=== PATIENT | female | born 1945 | race Caucasian/White ===

== ENCOUNTER 2018-08-09 15:10 | Emergency (ER) | payer MEDICARE, OTHER ==
--- NOTE | 2018-08-09 15:13 | EDM.PDOC ---
ED HPI GENERAL MEDICAL PROBLEM - General Stated Complaint: LT HAND IS SWOLLEN AND HURTS Time Seen by Provider: 08/09/18 15:11 Source of Information: Reports: Patient History Limitations: Reports: No Limitations - History of Present Illness INITIAL COMMENTS - FREE TEXT/NARRATIVE: History of present illness: []Patient is on steroids for chronic arthritis and has some skin breakdown on her left forearm. She fell in the bathtub a month ago and has had pain in both arms since. Last night she started having redness and swelling to the dorsal part of her hand and forearm. She denies any fevers, chills, numbness, tingling or difficulty with movement. Review of systems: As per history of present illness and below otherwise all systems reviewed and negative. Past medical history: As per history of present illness and as reviewed below otherwise noncontributory. Surgical history: As per history of present illness and as reviewed below otherwise noncontributory. Social history: No reported history of drug or alcohol abuse. Family history: As per history of present illness and as reviewed below otherwise noncontributory. Physical exam: General: Well developed, well nourished in NAD HEENT: Atraumatic, normocephalic, pupils reactive, negative for conjunctival pallor or scleral icterus, mucous membranes moist, throat clear, neck supple, nontender, trachea midline. Lungs: Clear to auscultation, breath sounds equal bilaterally, chest nontender. Heart: S1S2, regular, negative for clicks, rubs, or JVD. Abdomen: NABS, Soft, nondistended, nontender. Negative for masses or hepatosplenomegaly. Negative for costovertebral tenderness. Pelvis: Stable nontender. Genitourinary: Deferred. Rectal: Deferred. Extremities: Mild Pale erythema of dorsal left hand extending to the mid left forearm, negative for cords or calf pain. Neurovascular unremarkable. Neuro: Awake, alert, oriented. Cranial nerves II through XII unremarkable. Cerebellum unremarkable. Motor and sensory unremarkable throughout. Exam nonfocal. Skin:warm and dry Diagnostics: None Therapeutics: None ED Course: Unremarkable Impression: Cellulitis left upper extremity Prescriptions: Keflex Plan: Take meds directed, follow up with primary care return if symptoms worsen or change. Definitive disposition and diagnosis as appropriate pending reevaluation and review of above. left wrist Pain Score (Numeric/FACES): 5 - Related Data Allergies Allergy/AdvReac Type Severity Reaction Status Date / Time Iodinated Contrast- Oral and Allergy Other Verified 08/09/18 15:32 IV Dye iodine Allergy Other Verified 08/09/18 15:32 Home Meds: Home Meds Allopurinol [Zyloprim] 1 tab PO DAILY 08/09/18 [History] Prednisolone, Micronized [Prednisolone] 1 dose PO DAILY 08/09/18 [History] amLODIPine [Norvasc] 1 tab PO DAILY 08/09/18 [History] cephALEXin [Keflex] 500 mg PO Q8H #21 cap 08/09/18 [Rx] Review of Systems - Review of Systems Review Of Systems: ROS reveals no pertinent complaints other than HPI. ED EXAM, GENERAL - Physical Exam Exam: See Below (See history of present illness) Course - Vital Signs Last Recorded V/S: Last Vital Signs Temp 97.3 F 08/09/18 15:34 Pulse 79 08/09/18 15:34 Resp 18 08/09/18 15:34 BP 135/72 08/09/18 15:34 Pulse Ox 94 L 08/09/18 15:34 Departure - Departure Time of Disposition: 15:50 Disposition: Home, Self-Care 01 Condition: Good Clinical Impression: Cellulitis Qualifiers: Site of cellulitis: extremity Site of cellulitis of extremity: upper extremity Laterality: left Qualified Code(s): L03.114 - Cellulitis of left upper limb - Discharge Information *PRESCRIPTION DRUG MONITORING PROGRAM REVIEWED*: No *COPY OF PRESCRIPTION DRUG MONITORING REPORT IN PATIENT UNIQUE: No Prescriptions: cephALEXin [Keflex] 500 mg PO Q8H #21 cap Additional Instructions: The following information is given to patients seen in the emergency department who are being discharged to home. This information is to outline your options for follow-up care. We provide all patients seen in our emergency department with a follow-up referral. The need for follow-up, as well as the timing and circumstances, are variable depending upon the specifics of your emergency department visit. If you don't have a primary care physician on staff, we will provide you with a referral. We always advise you to contact your personal physician following an emergency department visit to inform them of the circumstance of the visit and for follow-up with them and/or the need for any referrals to a consulting specialist. The emergency department will also refer you to a specialist when appropriate. This referral assures that you have the opportunity for follow-up care with a specialist. All of these measure are taken in an effort to provide you with optimal care, which includes your follow-up. Under all circumstances we always encourage you to contact your private physician who remains a resource for coordinating your care. When calling for follow-up care, please make the office aware that this follow-up is from your recent emergency room visit. If for any reason you are refused follow-up, please contact the [facility] Emergency Department at and asked to speak to the emergency department charge nurse. Meds as directed follow-up with primary care within a week. Return to ER if symptoms worsen or change. [facility] [address] [place] [id number]
== END 2018-08-09 16:02 | disposition home or self-care (01) ==
LOC: MW.ED 15:10
DX: L03.114 Cellulitis of left upper limb (principal); Z91.041 Radiographic dye allergy status; Z91.09 Other allergy status, other than to drugs and biological substances; Z79.899 Other long term (current) drug therapy
CPT/HCPCS: 99283

== ENCOUNTER 2018-08-30 08:26 | Day surgery (SDC) | payer MEDICARE, OTHER ==
[~2018-08-30 08:26] MED LIST: Bupivacaine 0.25%/EPINEPHrine 1:200,000 10 ML SDV INJECT ONE; Bupivacaine 0.25%/EPINEPHrine 1:200,000 10 ML SDV ONE; Lactated Ringers 1,000 ML IV SCH; Lidocaine 2% 5 ML SDV ONE; Midazolam 1 MG/ML 2 ML SDV ONE; Propofol 200 MG/20 ML SDV ONE; fentaNYL 100 MCG/2 ML SDV ONE
--- NOTE | 2018-08-30 09:05 | PCM.PREANE ---
Preanesthetic Assessment - Anesthesia/Transfusion/Family Hx Anesthesia History: Prior Anesthesia Reaction (previous surgeries include cataract, nose reconstruction, corneal transplants, liver cyst excision, colon resection, tubal ligation, RIGHT mastectomy with axillary node dissection. Patient states that MORPHINE post operatively makes her nauseated. No other anethesia reactions, just nausea. Patient states she was told that "the hose that goes into my lungs makes me nauseated" (intubation)....) Family History of Anesthesia Reaction: No Transfusion History: No Prior Transfusion(s) - Review of Systems General: No Symptoms (hypertension, gout, a little hard of hearing, quit smoking 2002, obese, civerticulosis, Hiatal Hernia with mild GERD, kidney stones , low back pain which prevents her from laying flat, psoriasis, concussion as a little child in grade school (no sequelae), bipolar, , arthritis for which she takes daily prednisone) Pulmonary: No Symptoms Cardiovascular: No Symptoms (hypertension) Gastrointestinal: No Symptoms (see above) Neurological: No Symptoms (bipolar history) Other: Reports: None (see above) - Physical Assessment NPO Status Date: 08/30/18 NPO Status Time: 00:00 Pulse: 74 O2 Sat by Pulse Oximetry: 95 Respiratory Rate: 16 Blood Pressure: 146/79 Temperature: 36.2 C Height: 1.63 m Weight: 90.718 kg ASA Class: 3 Mental Status: Alert & Oriented x3 Airway Class: Mallampati = 2 Dentition: Reports: Normal Dentition Thyro-Mental Finger Breadths: 2 Mouth Opening Finger Breadths: 2 ROM/Head Extension: Full Lungs: Clear to Auscultation, Normal Respiratory Effort Cardiovascular: Regular Rate, Regular Rhythm, No Murmurs - Allergies Allergies/Adverse Reactions: Allergies Allergy/AdvReac Type Severity Reaction Status Date / Time amoxicillin [From Augmentin] Allergy Nausea and Verified 08/28/18 09:28 Vomiting clavulanic acid Allergy Nausea and Verified 08/28/18 09:28 [From Augmentin] Vomiting clindamycin Allergy Nausea and Verified 08/28/18 09:28 Vomiting codeine Allergy Nausea and Verified 08/28/18 09:28 Vomiting Iodinated Contrast- Oral and Allergy Hives Verified 08/28/18 09:28 IV Dye iodine Allergy Hives Verified 08/28/18 09:28 levofloxacin Allergy Nausea and Verified 08/28/18 09:28 Vomiting morphine Allergy Nausea and Verified 08/28/18 09:28 Vomiting olmesartan Allergy Nausea and Verified 08/28/18 09:28 Vomiting oxycodone Allergy Nausea and Verified 08/28/18 09:28 Vomiting Sulfa (Sulfonamide Allergy Nausea and Verified 08/28/18 09:28 Antibiotics) Vomiting telmisartan Allergy Nausea and Verified 08/28/18 09:28 Vomiting theophylline [From Theolair] Allergy Cannot Verified 08/28/18 09:28 Remember - Blood Blood Available: No Product(s) Available: None - Acknowledgements Anesthesia Type Planned: MAC (Plan A: MAC. 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: Musculoskeletal History: Reports: Back Pain, Chronic, Gout, Neck Pain, Chronic, RA Neurological History: Reports: Concussion Psychiatric History: Reports: Anxiety, Depression Endocrine/Metabolic History: Reports: Obesity/BMI 30+ Hematologic History: Reports: None Immunologic History: Reports: Immunosuppression Oncologic (Cancer) History: Reports: Breast Dermatologic History: Reports: Psoriasis - Infectious Disease History Infectious Disease History: Reports: Measles - Past Surgical History Head Surgeries/Procedures: Reports: None HEENT Surgical History: Reports: Cataract Surgery, Naso-Sinus Surgery Other HEENT Surgeries/Procedures: hx of bilateral corneal transplants Cardiovascular Surgical History: Reports: None Respiratory Surgical History: Reports: None GI Surgical History: Reports: Colon, Colonoscopy, Other (See Below) Other GI Surgeries/Procedures: hx of Colon Resection for diverticulosis, hx of "cyst" removed from liver Female Surgical History: Reports: Mastectomy, Tubal Ligation Endocrine Surgical History: Reports: None Neurological Surgical History: Reports: None Musculoskeletal Surgical History: Reports: Arthroscopic Knee Oncologic Surgical History: Reports: Mastectomy Dermatological Surgical History: Reports: None - SUBSTANCE USE Smoking Status *Q: Former Smoker Tobacco Use Within Last Twelve Months: No Recreational Drug Use History: No - HOME MEDS Home Medications: Home Meds Allopurinol [Zyloprim] 100 mg PO QPM 08/09/18 [History] Prednisolone, Micronized [Prednisolone] 5 mg PO QPM 08/09/18 [History] amLODIPine [Norvasc] 10 mg PO QPM 08/09/18 [History] Citalopram [Citalopram HBr] 20 mg PO QPM 08/28/18 [History] Diclofenac Sodium [Voltaren] 50 mg PO QPM 08/28/18 [History] Fluticasone Propionate [Flonase Allergy Relief] 1 spray NASBOTH DAILY PRN [History] Gabapentin [Neurontin] 100 mg PO QPM 08/28/18 [History] - CURRENT (IN HOUSE) MEDS Current Meds: Current Medications Lactated Ringer's (Ringers, Lactated) 1,000 mls @ 125 mls/hr IV ASDIRECTED [facility] Last Admin: 08/30/18 08:57 Dose: 125 mls/hr Discontinued Medications Bupivacaine HCl/Epinephrine Bitart (Marcaine 0.25%/Epinephrine 1:200,000) 10 ml INJECT ONETIME ONE Stop: 08/30/18 08:01 Bupivacaine HCl/Epinephrine Bitart (Marcaine 0.25%/Epinephrine 1:200,000) Confirm Administered Dose 10 ml .ROUTE .STK-MED ONE Stop: 08/30/18 07:22 Fentanyl (Sublimaze) Confirm Administered Dose 100 mcg .ROUTE .STK-MED ONE Stop: 08/30/18 07:44 Lidocaine (Xylocaine-Mpf 2%) Confirm Administered Dose 5 ml .ROUTE .STK-MED ONE Stop: 08/30/18 07:44 Midazolam HCl (Versed 1 Mg/Ml) Confirm Administered Dose 2 mg .ROUTE .STK-MED ONE Stop: 08/30/18 07:44 Propofol (Diprivan 20 Ml) Confirm Administered Dose 200 mg .ROUTE .STK-MED ONE Stop: 08/30/18 07:44
[2018-08-30] MEDS ORDERED: Ondansetron 4 MG/2 ML SDV ONE (14:33)
[2018-08-30] MEDS ORDERED: Acetaminophen 1,000 MG in Premix Bag 1 BAG IV PRN (15:20)
--- NOTE | 2018-08-30 16:37 | PCM48HPAN ---
Post Anesthesia Note - EVALUATION WITHIN 48HRS OF ANESTHETIC Vital Signs in Normal Range: Yes Patient Participated in Evaluation: Yes Respiratory Function Stable: Yes Airway Patent: Yes Cardiovascular Function Stable: Yes Hydration Status Stable: Yes Pain Control Satisfactory: Yes Nausea and Vomiting Control Satisfactory: Yes Pulse Rate: 74 Resp Rate: 16 Temperature: 36.2 C Blood Pressure: 146/79
--- NOTE | 2018-08-30 18:10 | PCM.OPNOTE ---
- General Post-Op/Procedure Note Date of Surgery/Procedure: 08/30/18 Operative Procedure(s): excision of right dorsal hand squamous cell with frozen sections and skin graft closure 6x3cm Pre Op Diagnosis: squamous cell right hand Post-Op Diagnosis: Same Anesthesia Technique: General LMA, Local Primary Surgeon: Yessenia [employer] Supervisor: Buffy Rasmussen Complications: None Condition: Good
--- NOTE | 2018-09-01 12:46 | OR ---
SURGEON: OSAMN BOB MD DATE OF PROCEDURE: 08/30/2018 PREOPERATIVE DIAGNOSIS: Right hand dorsal squamous cell carcinoma. POSTOPERATIVE DIAGNOSIS: Right hand dorsal squamous cell carcinoma. PROCEDURES: Excision of right hand dorsal squamous cell carcinoma with frozen sections and skin graft closure of 6 x 3 cm each. SCENERY BUILDER: CHIQUITA Kiran ANESTHESIA: General LMA with local. REASON FOR AND ROLE OF SCENERY BUILDER: Retraction, prepping, draping, positioning and closure assistance. INDICATIONS: Ms. Nelson is a 73-year-old female with a large right dorsal hand squamous cell carcinoma with significant scarring tethering around this. Risks and benefits of excision were discussed with her and she was in agreement to proceed. Risks were including, but not limited to, bleeding, infection, damage to underlying or overlying structures, possible need for future interventions, and possible scarring. PROCEDURE IN DETAIL: After informed consent was obtained and placed on the chart, the patient was brought to operating theater and laid in supine position. After adequate LMA anesthesia was obtained, the area was prepped and draped, and a time-out was completed to confirm side and site. 0.25% Marcaine with epinephrine was injected into the area for block. Once adequately anesthetized, the area was excised in elliptical fashion for a total size of 6 x 3 cm. This was marked at the 12 o'clock position and sent for pathology. Margins were confirmed as negative for this acanthomatous squamous cell. Once adequately excised, meticulous hemostasis was obtained and a skin graft was borrowed from the right volar forearm in an elliptical fashion for a 6x 3 cm. This was then sutured in place using a 5-0 chromic stitch and once adequately secured, it was dressed with Xeroform fluffs and a Kerlix gauze dressing. The donor site was closed with 4-0 Monocryl in a running subcuticular fashion and Steri-Strips. She tolerated this well. All counts and needles were correct at the end of the case. FOLLOWUP INSTRUCTIONS: The patient will see us in 5 days, sooner if any problems, questions, or concerns. HEGGTTIP / TREY /[id number]
== END 2018-08-30 16:36 | disposition home or self-care (01) ==
LOC: MW.SDS 08:26
PROVIDERS: ATTEND Plastic Surgery
DX: C76.41 Malignant neoplasm of right upper limb (principal); I10 Essential (primary) hypertension; E66.9 Obesity, unspecified; Z68.34 Body mass index [BMI] 34.0-34.9, adult; Z87.891 Personal history of nicotine dependence; Z79.899 Other long term (current) drug therapy; Z88.1 Allergy status to other antibiotic agents; Z88.5 Allergy status to narcotic agent; Z88.8 Allergy status to other drugs, medicaments and biological substances; Z88.2 Allergy status to sulfonamides
CPT/HCPCS: 14041; J2001; J2250; J2405; J2704; J3010; J3490; J7120

== ENCOUNTER 2019-02-10 07:29 | Inpatient (IN) | payer MEDICARE, OTHER ==
[~2019-02-10 07:29] MED LIST changes: +Acetaminophen 1,000 MG in Premix Bag 1 BAG IV SCH; -Bupivacaine 0.25%/EPINEPHrine 1:200,000 10 ML SDV INJECT ONE; -Bupivacaine 0.25%/EPINEPHrine 1:200,000 10 ML SDV ONE; +Famotidine 20 MG/2 ML SDV IVPUSH SCH; -Lactated Ringers 1,000 ML IV SCH; -Lidocaine 2% 5 ML SDV ONE; -Midazolam 1 MG/ML 2 ML SDV ONE; -Propofol 200 MG/20 ML SDV ONE; +Scopolamine 1.5 MG Transdermal Patch TRDERM SCH; -fentaNYL 100 MCG/2 ML SDV ONE; +oxyCODONE 5 MG Tab PO PRN
[2019-02-10] MEDS ORDERED: Tranexamic Acid 2,000 MG in Sodium Chloride 0.9% 100 ML IV ONE (08:00)
[2019-02-10] MEDS ORDERED: ceFAZolin 2 GM in Premix Bag 1 BAG IV SCH (08:00)
[2019-02-10] MEDS ORDERED: Ropivacaine 49.25 ML, Ketorolac 30 MG, EPINEPHrine 0.5 MG, cloNIDine 80 MCG in Sodium C... INJECT SCH (08:00)
[2019-02-10] MEDS: Lactated Ringers 1,000 ML IV SCH ×2 (08:52→15:45)
[2019-02-10] MEDS ORDERED: ePHEDrine 50 MG/ML SDV ONE (09:32)
[2019-02-10] MEDS ORDERED: Sodium Chloride 0.9% 40 ML ONE (09:32)
[2019-02-10] MEDS ORDERED: Ondansetron 4 MG/2 ML SDV ONE (09:32)
[2019-02-10] MEDS ORDERED: Midazolam 1 MG/ML 2 ML SDV ONE (09:33)
[2019-02-10] MEDS ORDERED: Propofol 200 MG/20 ML SDV ONE ×2 (09:33→11:54)
--- NOTE | 2019-02-10 09:55 | PCM.PREANE ---
Preanesthetic Assessment - Anesthesia/Transfusion/Family Hx Anesthesia History: Prior Anesthesia Without Reaction Type of Anesthesia Reaction: Other (see below) (use to have a lot of nauzea) Family History of Anesthesia Reaction: No Transfusion History: No Prior Transfusion(s) Intubation History: Unknown - Review of Systems General: No Symptoms Pulmonary: No Symptoms Cardiovascular: No Symptoms Gastrointestinal: No Symptoms Neurological: No Symptoms Other: Reports: None - Physical Assessment NPO Status Date: 02/09/19 NPO Status Time: 23:00 O2 Sat by Pulse Oximetry: 92 Respiratory Rate: 16 Vital Signs: Last Vital Signs Temp 36.4 C 02/10/19 07:30 Pulse 64 02/10/19 07:30 Resp 16 02/10/19 07:30 BP 134/77 02/10/19 07:30 Pulse Ox 92 L 02/10/19 07:30 Height: 5 ft 4 in Weight: 90.718 kg ASA Class: 2 Mental Status: Alert & Oriented x3 Airway Class: Mallampati = 2 Dentition: Reports: Normal Dentition Thyro-Mental Finger Breadths: 3 Mouth Opening Finger Breadths: 3 ROM/Head Extension: Full Lungs: Clear to Auscultation, Normal Respiratory Effort Cardiovascular: Regular Rate, Regular Rhythm - Lab Values: Laboratory Last Values Blood Type O NEGATIVE 02/10/19 08:14 Antibody Screen NEGATIVE 02/10/19 08:14 - Allergies Allergies/Adverse Reactions: Allergies Allergy/AdvReac Type Severity Reaction Status Date / Time amoxicillin [From Augmentin] Allergy Nausea and Verified 02/05/19 10:22 Vomiting clavulanic acid Allergy Nausea and Verified 02/05/19 10:22 [From Augmentin] Vomiting clindamycin Allergy Nausea and Verified 02/05/19 10:22 Vomiting codeine Allergy Nausea and Verified 02/05/19 10:22 Vomiting Iodinated Contrast- Oral and Allergy Hives Verified 02/05/19 10:22 IV Dye iodine Allergy Hives Verified 02/05/19 10:22 levofloxacin Allergy Nausea and Verified 02/05/19 10:22 Vomiting morphine Allergy Nausea and Verified 02/05/19 10:22 Vomiting olmesartan Allergy Nausea and Verified 02/05/19 10:22 Vomiting oxycodone Allergy Nausea and Verified 02/05/19 10:22 Vomiting Sulfa (Sulfonamide Allergy Nausea and Verified 02/05/19 10:22 Antibiotics) Vomiting telmisartan Allergy Nausea and Verified 02/05/19 10:22 Vomiting theophylline [From Theolair] Allergy Cannot Verified 02/05/19 10:22 Remember - Blood Blood Available: No - Anesthesia Plan Pre-Op Medication Ordered: None - Acknowledgements Anesthesia Type Planned: Spinal (general anesthesia back up plan) Pt an Appropriate Candidate for the Planned Anesthesia: Yes Alternatives and Risks of Anesthesia Discussed w Pt/Guardian: Yes Pt/Guardian Understands and Agrees with Anesthesia Plan: Yes PreAnesthesia Questionnaire HEENT History: Reports: Cataract, Other (See Below) Other HEENT History: hx of fx nose, hx of Fuchs Corneal Dystrophy Cardiovascular History: Reports: Hypertension Respiratory History: Reports: None Gastrointestinal History: Reports: Diverticulosis, Hiatal Hernia Genitourinary History: Reports: Renal Calculus Other Genitourinary History: passed stones on her own 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: Musculoskeletal History: Reports: Back Pain, Chronic, Gout, Neck Pain, Chronic, RA Neurological History: Reports: Concussion Psychiatric History: Reports: Anxiety, Depression Endocrine/Metabolic History: Reports: Obesity/BMI 30+ Hematologic History: Reports: None Immunologic History: Reports: Immunosuppression Oncologic (Cancer) History: Reports: Basal Cell Carcinoma, Breast Dermatologic History: Reports: Psoriasis - Infectious Disease History Infectious Disease History: Reports: Measles - Past Surgical History Head Surgeries/Procedures: Reports: None HEENT Surgical History: Reports: Cataract Surgery, Naso-Sinus Surgery, Other ( See Below) Other HEENT Surgeries/Procedures: hx of bilateral corneal transplants Cardiovascular Surgical History: Reports: None Respiratory Surgical History: Reports: None GI Surgical History: Reports: Colon, Colonoscopy, Other (See Below) Other GI Surgeries/Procedures: hx of Colon Resection for diverticulosis, hx of "cyst" removed from liver Female Surgical History: Reports: Mastectomy, Tubal Ligation Endocrine Surgical History: Reports: None Neurological Surgical History: Reports: None Musculoskeletal Surgical History: Reports: Arthroscopic Knee Oncologic Surgical History: Reports: Mastectomy Dermatological Surgical History: Reports: None, Skin Biopsy - SUBSTANCE USE Smoking Status *Q: Former Smoker Tobacco Use Within Last Twelve Months: No Recreational Drug Use History: No - HOME MEDS Home Medications: Home Meds Allopurinol [Zyloprim] 100 mg PO QPM 08/09/18 [History] amLODIPine [Norvasc] 10 mg PO QPM 08/09/18 [History] Citalopram [Citalopram HBr] 20 mg PO QPM 08/28/18 [History] Fluticasone Propionate [Flonase Allergy Relief] 1 spray NASBOTH DAILY PRN [History] Gabapentin [Neurontin] 100 mg PO QPM 08/28/18 [History] Furosemide 20 mg PO DAILY PRN 02/05/19 [History] predniSONE 2.5 mg PO DAILY 02/10/19 [History] prednisoLONE acetate [Pred Forte 1% Ophth Susp] 1 drop EYEBOTH BID 02/10/19 [ History] - CURRENT (IN HOUSE) MEDS Current Meds: Current Medications Famotidine (Pepcid) 40 mg IVPUSH ONARRIVE [facility] Last Admin: 02/10/19 09:09 Dose: 40 mg Acetaminophen 1,000 mg/ Premix 100 mls @ 400 mls/hr IV ONARRIVE [facility] Last Admin: 02/10/19 09:08 Dose: 400 mls/hr Cefazolin Sodium/Dextrose 2 gm (/ Premix) 50 mls @ 100 mls/hr IV ONCALL [facility] Ropivacaine 49.25 ml/Ketorolac Tromethamine 30 mg/Epinephrine HCl 0.5 mg/ Clonidine HCl 80 mcg/ Sodium Chloride 75 mls @ 50 mls/sec INJECT ASDIRECTED [facility] Lactated Ringer's (Ringers, Lactated) 1,000 mls @ 100 mls/hr IV ASDIRECTED [facility] Last Admin: 02/10/19 08:52 Dose: 100 mls/hr Scopolamine (Transderm-Scop) 1.5 mg TRDERM ONARRIVE [facility] Last Admin: 02/10/19 09:09 Dose: 1.5 mg Discontinued Medications Ephedrine Sulfate (Ephedrine Sulfate) Confirm Administered Dose 50 mg .ROUTE .STK-MED ONE Stop: 02/10/19 09:33 Tranexamic Acid 2,000 mg/ (Sodium Chloride) 120 mls @ 600 mls/hr IV ASDIRECTED ONE Stop: 02/10/19 08:11 Sodium Chloride (Normal Saline) Confirm Administered Dose 40 mls @ as directed .ROUTE .STK-MED ONE Stop: 02/10/19 09:33 Midazolam HCl (Versed 1 Mg/Ml) Confirm Administered Dose 2 mg .ROUTE .STK-MED ONE Stop: 02/10/19 09:34 Ondansetron HCl (Zofran) Confirm Administered Dose 4 mg .ROUTE .STK-MED ONE Stop: 02/10/19 09:33 Propofol (Diprivan 20 Ml) Confirm Administered Dose 400 mg .ROUTE .STK-MED ONE Stop: 02/10/19 09:34 Tranexamic Acid (Cyklokapron) Confirm Administered Dose 2,000 mg .ROUTE .STK- MED ONE Stop: 02/10/19 07:48
[2019-02-10] MEDS ORDERED: fentaNYL 100 MCG/2 ML SDV ONE (11:43)
[2019-02-10] MEDS ORDERED: Bisacodyl 10 MG Supp RECTAL PRN (12:48)
[2019-02-10] MEDS ORDERED: Aluminum Hydroxide/Magnesium Hydroxide/Simethicone Susp 30 ML Cup PO PRN (12:48)
[2019-02-10] MEDS ORDERED: HYDROmorphone 1 MG/ML Syringe IVPUSH PRN (12:48)
[2019-02-10] MEDS ORDERED: Docusate Sodium 100 MG Cap PO PRN (12:48)
[2019-02-10] MEDS ORDERED: diphenhydrAMINE 25 MG Cap PO PRN (12:48)
[2019-02-10] MEDS ORDERED: Sodium Chloride 0.9% 2.5 ML Syringe FLUSH PRN (12:51)
[2019-02-10] MEDS ORDERED: Sodium Chloride 0.9% 10 ML Syringe FLUSH PRN (12:51)
[2019-02-10] MEDS ORDERED: Furosemide 20 MG Tab PO PRN (12:52)
[2019-02-10] MEDS ORDERED: Fluticasone Propionate Nasal Spray 16 GM Bottle NASBOTH PRN (12:52)
--- NOTE | 2019-02-10 13:06 | PCM.OPNOTE ---
- General Post-Op/Procedure Note Date of Surgery/Procedure: 02/10/19 Operative Procedure(s): L TKA Post-Op Diagnosis: L knee DJD Anesthesia Technique: Moderate Sedation, Spinal Primary Surgeon: Izzy Donovan Technical Illustrations Map Inker: Joyce Castro Technical Illustrations Map Inker: Suzy Mahoney EBL in mLs: 50 Condition: Good Free Text/Narrative:: tt=53 min #[id number] Intake & Output 02/09/19 02/10/19 02/10/19 22:59 06:59 14:59 Output Total 450 Balance -450
[2019-02-10] MEDS: Ketorolac 30 MG/ML SDV IVPUSH SCH ×2 (13:19→18:32)
[2019-02-10] MEDS ORDERED: fentaNYL 100 MCG/2 ML SDV IVPUSH PRN (13:30)
--- NOTE | 2019-02-10 13:53 | PCM.POSTAN ---
POST ANESTHESIA ASSESSMENT - MENTAL STATUS Mental Status: Alert, Oriented - RESPIRATORY Respiratory Status: Respiratory Rate WNL, Airway Patent, O2 Saturation Stable - CARDIOVASCULAR CV Status: Pulse Rate WNL, Blood Pressure Stable - GASTROINTESTINAL GI Status: No Symptoms - PAIN Pain Score: 5 - POST OP HYDRATION Hydration Status: Adequate & Stable
--- NOTE | 2019-02-10 14:12 | OR ---
SURGEON: Izzy Donovan MD DATE OF PROCEDURE: 02/10/2019 PREOPERATIVE DIAGNOSIS: Degenerative joint disease, left knee, tricompartmental. POSTOPERATIVE DIAGNOSIS: Degenerative joint disease, left knee, tricompartmental. PROCEDURE PERFORMED: Left total knee arthroplasty. PRIMARY SURGEON: Izzy Donovan MD. SPORTS MEDICINE TRAINER: Joyce Castro PA-C, and STEPHANIE Penn. ANESTHESIA: Spinal with sedation. ESTIMATED BLOOD LOSS: 50 mL. TOURNIQUET TIME: 53 minutes. COMPLICATIONS: None. DVT PROPHYLAXIS: PAS boot to the nonoperative leg. IMPLANTS USED: García Persona femoral component, size 7 standard (LPS), tibial component size E, 11 mm all-polyethylene articular surface, and 32 mm all-polyethylene patella. FINDINGS: Intraoperative findings showed severe tricompartmental degenerative changes with eburnation of the bone along the medial tibial plateau as well as the medial femoral condyle. Multiple loose bodies were noted within the knee. She did have a calcified bony piece noted in the posterolateral aspect of the knee. I did attempt at removal, however, it appeared to be quite fixed to the soft tissue and was not loose like the other loose bodies, I felt this maybe a fabella. It did not appear to be loose and I elected to leave it intact as I felt that further dissection may cause more harm than good. No significant synovitis was noted within the knee. She did have a previous medial and lateral incision from prior surgeries. I did incorporate the medial incision with the incision to give her a curved type incision. BRIEF HISTORY: Elizabeth is a 73-year-old female who has had complaint of progressive left knee pain. X-rays did confirm tricompartmental degenerative findings. She has had previous surgery on the knee as well. Due to her lack of response to conservative treatment, I did recommend surgical intervention. The risks and goals of procedure were discussed with the patient and were documented preoperatively. She agreed to proceed. DESCRIPTION OF PROCEDURE: The patient was properly identified and brought to the operating room. The patient was then transferred from the operating room cart and placed on the operating table in a supine position. Anesthesia was administered by the anesthesia staff. After adequate anesthesia was obtained, a well-padded tourniquet was applied to the surgical lower extremity. Iyer catheter was placed. The lower extremity was then prepped in standard fashion using ChloraPrep solution. It was then sterilely draped. A time-out was performed to ensure correct site and procedure. Preoperative antibiotics were given along with one gram tranexamic acid IV. The surgical site had been marked preoperatively. An Esmarch was used to exsanguinate the right lower extremity and the tourniquet was inflated. An incision was made over the anterior aspect of the knee, incorporating the previous medial incision. The subcutaneous tissues were dissected down to the level of the fascia. A medial parapatellar approach to the knee was made. A portion of the infrapatellar fat pad was then excised. The distal femur was then exposed. The step reamer was used to gain access to the intramedullary canal. This was placed in 6 degrees of valgus. Pins were placed. The distal femoral cutting block was placed and the distal femoral cut was made. Instrumentation was then removed. The femur was then sized. Both Whitesides' line and the epicondylar axis were then marked with electrocautery. The 4-in-1 cutting block was placed. This was placed in a slightly externally rotated position, which corresponded well with the previously drawn lines. The cutting guide was then pinned into position. An Franklin wing guide was used to check the depth of resection of our anterior condylar cut and it was felt that no notching would occur. The anterior condylar cut was then made followed by the posterior condylar cut. Both the posterior chamfer and anterior chamfer cuts were then made. The cutting block was then removed along with the excess bony remnants. We then turned our attention to the tibia. The anterior cruciate ligament and posterior cruciate ligament were released and a posterior cruciate ligament retractor was placed to allow the tibia to be pulled anteriorly. The tibial extra-medullary guide was then positioned. We chose to take approximately 2 mm off the lowest side. The proximal tibia cutting guide was then placed and screwed into position. The proximal tibial resection was then made with care being taken to protect the patellar tendon. The bony resection was then removed. The remainder of the medial and lateral meniscus were then excised. Care was taken to protect the popliteus tendon. The tibia was then sized to the appropriate size. The distal femur was then elevated. The posterior capsule was stripped off the distal femur both medially and laterally. The posterior capsule along with the medial and lateral gutters were then injected with a standard mixture consisting of clonidine, epinephrine, Toradol, and ropivacaine, unless any allergies were found preoperatively. The femoral component was then placed onto the distal femur in a slightly lateral position. This fit the femur well. A box cut was then made without difficulty. This was then removed. The tibial trial along with the polyethylene liner was then placed. The knee came easily into full extension and was stable to varus and valgus stressing both in full extension and flexion. Any additional releases were performed at this time. We then returned our attention to the patella. The patella was everted and towel clamps were used to hold the patella in position. It was resected to a 15 millimeter thickness. It was then sized to the appropriate size. It was prepared in the usual fashion after placing the predetermined size clamps. This was placed in a slightly superior and medial position. The clamp was then removed. The patellar trial button was placed. The knee was taken through a range of motion using the no-touch technique. The patella tracked centrally. A drop lelia was then placed to check alignment. All instruments were then removed from the knee. The tibial sizer was then placed on the tibia. The tibia was prepared in the usual fashion using the reamer and broach. This was then removed. All bony surfaces were copiously irrigated with Pulsavac solution. They were then suctioned dry. Cement was prepared on the back table in the usual manner. Antibiotic impregnated cement was used if the patient was diabetic. Once it was prepared, the bone ends were again suctioned dry. The tibia was cemented into place first. This was malleted into position. Excess cement was then cleared. The femur was then placed in a similar manner. We placed the polyethylene trial into place and the knee was brought into full extension. An axial load was placed while keeping the knee in full extension. The patella button was also cemented into position and the clamp was used to hold this in place as the cement was allowed to cure. The wound was copiously irrigated with saline using a Pulsavac database development project manager. Following this, 1 gram of tranexamic acid was applied topically to the wound during the curing process. After we had adequate curing of the cement, the knee was again taken through a range of motion. The size of the polyethylene was then determined. The polyethylene trial was then removed. The tibial tray was suctioned to make sure there was no remaining soft tissue or cement. Excess cement was cleared from around the edges of the prosthesis as well. The tourniquet was then deflated. We were able to observe for any excess bleeding and none was noted. Electrocautery was used to maintain hemostasis. An additional gram of tranexamic acid was given IV. The retractors were again placed and the predetermined polyethylene was then placed. This was locked into position without difficulty. The knee was again taken through a range of motion with no change from the prior exam. The fascial layer was closed with Number One Vicryl. The subcutaneous tissues were closed with 2-0 Vicryl. The skin was closed with melinda. Xeroform gauze was placed over the wound and a bulky dressing was applied. The patient was then awakened from anesthesia and transferred back to the operating room cart. They were brought to the recovery room in stable condition. All needle and sponge counts were correct. NEREYDA / TREY /[id number] BELEN
[2019-02-10 15:42] LABS: CHLORIDE,CL 108 mmol/L (98-107); SODIUM,NA 143 mmol/L (136-145)
--- NOTE | 2019-02-10 15:52 | CR ---
EXAMINATION: Left knee HISTORY: Arthroplasty COMPARISON: 12/19/2018 TECHNIQUE: 2 views FINDINGS/IMPRESSION: Left total knee hardware is demonstrated in good position and alignment. Operative soft tissue changes are noted.
--- NOTE | 2019-02-10 16:23 | PCM.CONS ---
H&P History of Present Illness - General Date of Service: 02/10/19 Admit Problem/Dx: Admission Diagnosis/Problem Admission Diagnosis/Problem Left knee pain Source of Information: Patient, Old Records History Limitations: Reports: No Limitations - History of Present Illness Initial Comments - Free Text/Narative: This 73 year old female with pmh of HTN, polymyalgia rheumatica, chronic pain and fibromyalgia presented today for L TKA with Dr Donovan. Hospitalist service consulted for medical management. She is alert and oriented, having arrived to the Med/Surg unit from the PACU. She reports she is slightly nauseated, was dry heaving with PT and nausea increased with movement. She denies chest pain or SOB. No palpitations. She reports she takes Prednisone 2.5 mg daily for joint pain related to PMR. She reports BP is always controlled unless her pain is out of control. PCP, Dr Schilling Left Knee Pain Score (Numeric/FACES): 6 - Related Data Allergies/Adverse Reactions: Allergies Allergy/AdvReac Type Severity Reaction Status Date / Time amoxicillin [From Augmentin] Allergy Nausea and Verified 02/05/19 10:22 Vomiting clavulanic acid Allergy Nausea and Verified 02/05/19 10:22 [From Augmentin] Vomiting clindamycin Allergy Nausea and Verified 02/05/19 10:22 Vomiting codeine Allergy Nausea and Verified 02/05/19 10:22 Vomiting Iodinated Contrast- Oral and Allergy Hives Verified 02/05/19 10:22 IV Dye iodine Allergy Hives Verified 02/05/19 10:22 levofloxacin Allergy Nausea and Verified 02/05/19 10:22 Vomiting morphine Allergy Nausea and Verified 02/05/19 10:22 Vomiting olmesartan Allergy Nausea and Verified 02/05/19 10:22 Vomiting oxycodone Allergy Nausea and Verified 02/05/19 10:22 Vomiting Sulfa (Sulfonamide Allergy Nausea and Verified 02/05/19 10:22 Antibiotics) Vomiting telmisartan Allergy Nausea and Verified 02/05/19 10:22 Vomiting theophylline [From Theolair] Allergy Cannot Verified 02/05/19 10:22 Remember Home Medications: Home Meds Allopurinol [Zyloprim] 100 mg PO QPM 08/09/18 [History] amLODIPine [Norvasc] 10 mg PO QPM 08/09/18 [History] Citalopram [Citalopram HBr] 20 mg PO QPM 08/28/18 [History] Fluticasone Propionate [Flonase Allergy Relief] 1 spray NASBOTH DAILY PRN [History] Gabapentin [Neurontin] 100 mg PO QPM 08/28/18 [History] Furosemide 20 mg PO DAILY PRN 02/05/19 [History] predniSONE 2.5 mg PO DAILY 02/10/19 [History] prednisoLONE acetate [Pred Forte 1% Ophth Susp] 1 drop EYEBOTH BID 02/10/19 [ History] Past Medical History HEENT History: Reports: Cataract, Other (See Below) Other HEENT History: hx of fx nose, hx of Fuchs Corneal Dystrophy Cardiovascular History: Reports: Hypertension. Denies: Afib, Heart Murmur, [place] Respiratory History: Reports: None. Denies: COPD Gastrointestinal History: Reports: Diverticulosis, Hiatal Hernia Genitourinary History: Reports: Renal Calculus Other Genitourinary History: passed stones on her own CFO History: Reports: Musculoskeletal History: Reports: Back Pain, Chronic, Gout, Neck Pain, Chronic, RA Neurological History: Reports: Concussion Psychiatric History: Reports: Anxiety, Depression Endocrine/Metabolic History: Reports: Obesity/BMI 30+ Hematologic History: Reports: None Immunologic History: Reports: Immunosuppression Oncologic (Cancer) History: Reports: Basal Cell Carcinoma, Breast Dermatologic History: Reports: Psoriasis - Infectious Disease History Infectious Disease History: Reports: Measles - Past Surgical History Head Surgeries/Procedures: Reports: None HEENT Surgical History: Reports: Cataract Surgery, Naso-Sinus Surgery, Other ( See Below) Other HEENT Surgeries/Procedures: hx of bilateral corneal transplants Cardiovascular Surgical History: Reports: None Respiratory Surgical History: Reports: None GI Surgical History: Reports: Colon, Colonoscopy, Other (See Below) Other GI Surgeries/Procedures: hx of Colon Resection for diverticulosis, hx of "cyst" removed from liver Female Surgical History: Reports: Mastectomy, Tubal Ligation Endocrine Surgical History: Reports: None Neurological Surgical History: Reports: None Musculoskeletal Surgical History: Reports: Arthroscopic Knee Oncologic Surgical History: Reports: Mastectomy Dermatological Surgical History: Reports: None, Skin Biopsy Social & Family History - Family History Family Medical History: Noncontributory - Tobacco Use Smoking Status *Q: Former Smoker Tobacco Use Comment: quit 10 years ago - Caffeine Use Caffeine Use: Reports: Coffee - Recreational Drug Use Recreational Drug Use: No Drug Use in Last 12 Months: No H&P Review of Systems - Review of Systems: Review Of Systems: See Below General: Reports: No Symptoms. Denies: Fever, Chills, Malaise, Weakness HEENT: Reports: No Symptoms. Denies: Sinus Congestion Pulmonary: Reports: No Symptoms. Denies: Shortness of Breath Cardiovascular: Reports: No Symptoms. Denies: Chest Pain Gastrointestinal: Reports: Nausea. Denies: Abdominal Pain, Black Stool, Bloody Stool, Flatus, Vomiting Genitourinary: Reports: No Symptoms Musculoskeletal: Reports: No Symptoms Skin: Reports: No Symptoms Psychiatric: Reports: No Symptoms Neurological: Reports: No Symptoms Hematologic/Lymphatic: Reports: No Symptoms Immunologic: Reports: No Symptoms Exam - Exam Exam: See Below - Vital Signs Vital Signs: Last Vital Signs Temp 96.3 F 02/10/19 14:23 Pulse 70 02/10/19 14:46 Resp 16 02/10/19 14:46 BP 120/65 02/10/19 14:46 Pulse Ox 94 L 02/10/19 14:46 Weight: 90.718 kg - Exam Quality Assessment: Supplemental Oxygen, Urinary Catheter, DVT Prophylaxis General: Alert, Oriented, Cooperative Neck: Supple, Trachea Midline Lungs: Clear to Auscultation, Normal Respiratory Effort Cardiovascular: Regular Rate, Regular Rhythm GI/Abdominal Exam: Normal Bowel Sounds, Soft, Non-Tender Extremities: Normal Inspection, Normal Range of Motion, Non-Tender, No Pedal Edema Neuro Extensive - Mental Status: Alert, Oriented x3 Neuro Extensive - Motor, Sensory, Reflexes: CN II-XII Intact, Normal Gait Psychiatric: Alert, Normal Affect - Patient Data Lab Results Last 24 hrs: Laboratory Results - last 24 hr 02/10/19 02/10/19 02/10/19 Range/Units 08:14 15:14 15:14 WBC 8.32 (4.0-11.0) K/uL RBC 4.25 L (4.30-5.90) M/uL Hgb 12.3 (12.0-16.0) g/dL Hct 39.0 (36.0-46.0) % MCV 91.8 (80.0-98.0) fL MCH 28.9 (27.0-32.0) pg MCHC 31.5 (31.0-37.0) g/dL RDW Std Deviation 49.7 (28.0-62.0) fl RDW Coeff of Mauri 15 (11.0-15.0) % Plt Count 219 (150-400) K/uL MPV 9.70 (7.40-12.00) fL Neut % (Auto) 71.2 (48.0-80.0) % Lymph % (Auto) 19.4 (16.0-40.0) % [place] % (Auto) 8.7 (0.0-15.0) % Eos % (Auto) 0.5 (0.0-7.0) % Baso % (Auto) 0.2 (0.0-1.5) % Neut # (Auto) 5.9 H (1.4-5.7) K/uL Lymph # (Auto) 1.6 (0.6-2.4) K/uL [place] # (Auto) 0.7 (0.0-0.8) K/uL Eos # (Auto) 0.0 (0.0-0.7) K/uL Baso # (Auto) 0.0 (0.0-0.1) K/uL Nucleated RBC % 0.0 /100WBC Nucleated RBCs # 0 K/uL Sodium 143 (136-145) mmol/L Potassium 3.3 L (3.5-5.1) mmol/L Chloride 108 H (98-107) mmol/L Carbon Dioxide 27.9 (21.0-32.0) mmol/L BUN 10 (7.0-18.0) mg/dL Creatinine 0.6 (0.6-1.0) mg/dL Est Cr Clr Drug Dosing 71.03 mL/min Estimated GFR (MDRD) > 60.0 ml/min Glucose 115 H (74-106) mg/dL Calcium 8.2 L (8.5-10.1) mg/dL Magnesium 2.0 (1.8-2.4) mg/dL Blood Type O NEGATIVE Antibody Screen NEGATIVE Result Diagrams: 02/10/19 15:14 02/10/19 15:14 Consult PN Assessment/Plan Procedures: Procedures CT ABD & PELV W/CONTRAST (01/03/19) EMERGENCY DEPT VISIT (08/09/18) MRI JNT OF LWR EXTRE W/O DYE (01/02/19) TIS TRNFR F/C/C/M/N/A/G/H/F (08/30/18) X-RAY EXAM KNEE 4 OR MORE (12/19/18) (1) S/P total knee arthroplasty SNOMED Code(s): 1758203576823, 367802157, 1536178870510 Code(s): Z96.659 - PRESENCE OF UNSPECIFIED ARTIFICIAL KNEE JOINT Current Visit: Yes (2) HTN (hypertension) SNOMED Code(s): 41726663 Code(s): I10 - ESSENTIAL (PRIMARY) HYPERTENSION Current Visit: Yes (3) PMR (polymyalgia rheumatica) SNOMED Code(s): 86209650 Code(s): M35.3 - POLYMYALGIA RHEUMATICA Current Visit: Yes (4) Chronic pain SNOMED Code(s): 99638825 Code(s): G89.29 - OTHER CHRONIC PAIN Current Visit: Yes (5) Fibromyalgia SNOMED Code(s): 949301025 Code(s): M79.7 - FIBROMYALGIA Current Visit: Yes (6) Anxiety and depression SNOMED Code(s): 545282505 Code(s): F41.9 - ANXIETY DISORDER, UNSPECIFIED; F32.9 - MAJOR DEPRESSIVE DISORDER, SINGLE EPISODE, UNSPECIFIED Current Visit: Yes Problem List Initiated/Reviewed/Updated: Yes Plan: THis 73 year old female admitted for L TKA with Dr Donovan. Hospitalist service consulted for medical management. 1. S/P L TKA: Orders per Orthopedics 2. HTN: Stable. Continue Amlodipine. 3. PMR: Continue Prednisone. PPI. Gabapentin for chronic pain VTE prophylaxis: Recommended when Orthopedics deems appropriate
[2019-02-10] MEDS: Ondansetron 4 MG/2 ML SDV IVPUSH PRN (17:44)
[2019-02-10] MEDS: Citalopram 20 MG Tab PO SCH (17:50)
[2019-02-10] MEDS: amLODIPine 2.5 MG Tab PO SCH (17:50)
[2019-02-10] MEDS: Gabapentin 100 MG Cap PO SCH (17:50)
[2019-02-10] MEDS: Allopurinol 100 MG Tab PO SCH (17:51)
[2019-02-10] MEDS: prednisoLONE Acetate 1% Ophth Susp 5 ML Bottle EYEBOTH SCH (19:45)
[2019-02-10] MEDS: ceFAZolin 2 GM in Premix Bag 1 BAG IV SCH (19:53)
--- NOTE | 2019-02-11 00:05 | PCM48HPAN ---
Post Anesthesia Note - EVALUATION WITHIN 48HRS OF ANESTHETIC Vital Signs in Normal Range: Yes Patient Participated in Evaluation: Yes Respiratory Function Stable: Yes Airway Patent: Yes Cardiovascular Function Stable: Yes Hydration Status Stable: Yes Pain Control Satisfactory: Yes Nausea and Vomiting Control Satisfactory: Yes Mental Status Recovered: Yes Pulse Rate: 74 SaO2: 92 Resp Rate: 18 Temperature: 97.1 F Blood Pressure: 136/66
[2019-02-11] MEDS: Ketorolac 30 MG/ML SDV IVPUSH SCH (00:45)
[2019-02-11] MEDS: ceFAZolin 2 GM in Premix Bag 1 BAG IV SCH (02:30)
[2019-02-11] MEDS: Ondansetron 4 MG/2 ML SDV IVPUSH PRN (02:30)
--- NOTE | 2019-02-11 09:54 | PCM.CONSN ---
- General Info Date of Service: 02/11/19 Admission Dx/Problem (Free Text): Admission Diagnosis/Problem Admission Diagnosis/Problem Left knee pain Subjective Update: Feeling increased pain in L knee today with some mild nausea. Otherwise no chest pain of SOB. No other concerns currently. Functional Status: Reports: Pain Controlled, Tolerating Diet, Ambulating, Urinating - Review of Systems General: Reports: No Symptoms. Denies: Weakness, Fatigue HEENT: Reports: No Symptoms. Denies: Headaches, Sore Throat Pulmonary: Reports: No Symptoms. Denies: Shortness of Breath Cardiovascular: Reports: No Symptoms. Denies: Chest Pain Gastrointestinal: Reports: Nausea. Denies: Abdominal Pain, Vomiting Musculoskeletal: Reports: Joint Pain (L knee pain) Skin: Reports: No Symptoms Neurological: Reports: No Symptoms Psychiatric: Reports: No Symptoms - Patient Data Vitals - Most Recent: Last Vital Signs Temp 96.6 F 02/11/19 04:15 Pulse 80 02/11/19 04:15 Resp 16 02/11/19 04:15 BP 102/54 L 02/11/19 04:15 Pulse Ox 92 L 02/11/19 04:15 Weight - Most Recent: 90.718 kg I&O - Last 24 Hours: Intake & Output 02/10/19 02/11/19 02/11/19 22:59 06:59 14:59 Intake Total 1050 1891 Output Total 600 1200 Balance 450 691 Lab Results Last 24 Hours: Laboratory Results - last 24 hr 02/10/19 02/10/19 02/11/19 Range/Units 15:14 15:14 05:28 WBC 8.32 (4.0-11.0) K/uL RBC 4.25 L (4.30-5.90) M/uL Hgb 12.3 12.0 (12.0-16.0) g/dL Hct 39.0 38.6 (36.0-46.0) % MCV 91.8 (80.0-98.0) fL MCH 28.9 (27.0-32.0) pg MCHC 31.5 (31.0-37.0) g/dL RDW Std Deviation 49.7 (28.0-62.0) fl RDW Coeff of Mauri 15 (11.0-15.0) % Plt Count 219 (150-400) K/uL MPV 9.70 (7.40-12.00) fL Neut % (Auto) 71.2 (48.0-80.0) % Lymph % (Auto) 19.4 (16.0-40.0) % Evans % (Auto) 8.7 (0.0-15.0) % Eos % (Auto) 0.5 (0.0-7.0) % Baso % (Auto) 0.2 (0.0-1.5) % Neut # (Auto) 5.9 H (1.4-5.7) K/uL Lymph # (Auto) 1.6 (0.6-2.4) K/uL Evans # (Auto) 0.7 (0.0-0.8) K/uL Eos # (Auto) 0.0 (0.0-0.7) K/uL Baso # (Auto) 0.0 (0.0-0.1) K/uL Nucleated RBC % 0.0 /100WBC Nucleated RBCs # 0 K/uL Sodium 143 (136-145) mmol/L Potassium 3.3 L (3.5-5.1) mmol/L Chloride 108 H (98-107) mmol/L Carbon Dioxide 27.9 (21.0-32.0) mmol/L BUN 10 (7.0-18.0) mg/dL Creatinine 0.6 (0.6-1.0) mg/dL Est Cr Clr Drug Dosing 71.03 mL/min Estimated GFR (MDRD) > 60.0 ml/min Glucose 115 H (74-106) mg/dL Calcium 8.2 L (8.5-10.1) mg/dL Magnesium 2.0 (1.8-2.4) mg/dL Med Orders - Current: Current Medications Al Hydroxide/Mg Hydroxide (Mag-Al Plus) 30 ml PO Q4H PRN PRN Reason: Indigestion Allopurinol (Zyloprim) 100 mg PO QPM [facility] Last Admin: 02/10/19 17:51 Dose: 100 mg Amlodipine Besylate (Norvasc) 10 mg PO QPM [facility] Last Admin: 02/10/19 17:50 Dose: 10 mg Aspirin (Ecotrin) 325 mg PO BID [facility] Bisacodyl (Dulcolax) 10 mg RECTAL DAILY PRN PRN Reason: Constipation Celecoxib (Celebrex) 200 mg PO BID [facility] Citalopram Hydrobromide (Celexa) 20 mg PO QPM [facility] Last Admin: 02/10/19 17:50 Dose: 20 mg Diphenhydramine HCl (Benadryl) 25 - 50 mg PO Q6H PRN PRN Reason: Itching Docusate Sodium (Colace) 100 mg PO BID PRN PRN Reason: Constipation Famotidine (Pepcid) 40 mg IVPUSH ONARRIVE [facility] Last Admin: 02/10/19 09:09 Dose: 40 mg Famotidine (Pepcid) 40 mg PO DAILY [facility] Fentanyl (Sublimaze) 50 - 100 mcg IVPUSH Q5M PRN PRN Reason: Pain (severe 7-10) Fluticasone Propionate (Flonase) 0 gm NASBOTH DAILY PRN PRN Reason: Allergies Furosemide (Lasix) 20 mg PO DAILY PRN PRN Reason: swollen legs Gabapentin (Neurontin) 100 mg PO QPM [facility] Last Admin: 02/10/19 17:50 Dose: 100 mg Hydromorphone HCl (Dilaudid) 0.5 - 1 mg IVPUSH Q3H PRN PRN Reason: Pain Last Admin: 02/10/19 14:33 Dose: 1 mg Acetaminophen 1,000 mg/ Premix 100 mls @ 400 mls/hr IV ONARRIVE [facility] Last Admin: 02/10/19 09:08 Dose: 400 mls/hr Cefazolin Sodium/Dextrose 2 gm (/ Premix) 50 mls @ 100 mls/hr IV ONCALL [facility] Last Admin: 02/10/19 18:20 Dose: 100 mls/hr Ropivacaine 49.25 ml/Ketorolac Tromethamine 30 mg/Epinephrine HCl 0.5 mg/ Clonidine HCl 80 mcg/ Sodium Chloride 75 mls @ 50 mls/sec INJECT ASDIRECTED [facility] Lactated Ringer's (Ringers, Lactated) 1,000 mls @ 100 mls/hr IV ASDIRECTED [facility] Last Admin: 02/10/19 15:45 Dose: 100 mls/hr Ondansetron HCl (Zofran) 4 mg IVPUSH Q6H PRN PRN Reason: Nausea/Vomiting Last Admin: 02/11/19 02:30 Dose: 4 mg Oxycodone/Acetaminophen (Percocet 325-5 Mg) 1 - 2 tab PO Q4H PRN PRN Reason: Pain Polyethylene Glycol (Miralax) 17 gm PO DAILY [facility] Prednisolone Acetate (Pred Forte 1% Ophth Susp) 1 ml EYEBOTH BID [facility] Last Admin: 02/10/19 19:45 Dose: Not Given Prednisone (Prednisone) 2.5 mg PO DAILY [facility] Scopolamine (Transderm-Scop) 1.5 mg TRDERM ONARRIVE [facility] Last Admin: 02/10/19 09:09 Dose: 1.5 mg Sodium Chloride (Saline Flush) 10 ml FLUSH ASDIRECTED PRN PRN Reason: Keep Vein Open Sodium Chloride (Saline Flush) 2.5 ml FLUSH ASDIRECTED PRN PRN Reason: Keep Vein Open Discontinued Medications Ephedrine Sulfate (Ephedrine Sulfate) Confirm Administered Dose 50 mg .ROUTE .STK-MED ONE Stop: 02/10/19 09:33 Fentanyl (Sublimaze) Confirm Administered Dose 100 mcg .ROUTE .STK-MED ONE Stop: 02/10/19 11:44 Tranexamic Acid 2,000 mg/ (Sodium Chloride) 120 mls @ 600 mls/hr IV ASDIRECTED ONE Stop: 02/10/19 08:11 Last Admin: 02/10/19 19:45 Dose: Not Given Sodium Chloride (Normal Saline) Confirm Administered Dose 40 mls @ as directed .ROUTE .STK-MED ONE Stop: 02/10/19 09:33 Cefazolin Sodium/Dextrose 2 gm (/ Premix) 50 mls @ 100 mls/hr IV Q8H [facility] Stop: 02/11/19 03:29 Last Admin: 02/11/19 02:30 Dose: 100 mls/hr Ketorolac Tromethamine (Toradol) 15 mg IVPUSH Q6H [facility] Stop: 02/11/19 05:00 Last Admin: 02/11/19 00:45 Dose: 15 mg Midazolam HCl (Versed 1 Mg/Ml) Confirm Administered Dose 2 mg .ROUTE .STK-MED ONE Stop: 02/10/19 09:34 Ondansetron HCl (Zofran) Confirm Administered Dose 4 mg .ROUTE .STK-MED ONE Stop: 02/10/19 09:33 Oxycodone HCl (Oxycodone) 5 - 10 mg PO Q4H PRN PRN Reason: Pain Stop: 02/11/19 06:00 Last Admin: 02/11/19 02:30 Dose: 10 mg Propofol (Diprivan 20 Ml) Confirm Administered Dose 400 mg .ROUTE .STK-MED ONE Stop: 02/10/19 09:34 Propofol (Diprivan 20 Ml) Confirm Administered Dose 200 mg .ROUTE .STK-MED ONE Stop: 02/10/19 11:55 Tranexamic Acid (Cyklokapron) Confirm Administered Dose 2,000 mg .ROUTE .STK- MED ONE Stop: 02/10/19 07:48 - Exam General: Alert, Oriented, Cooperative, No Acute Distress Lungs: Clear to Auscultation, Normal Respiratory Effort Cardiovascular: Regular Rate, Regular Rhythm, No Murmurs GI/Abdominal Exam: Normal Bowel Sounds, Soft, Non-Tender, Other (passing flatus) Extremities: Normal Inspection, Normal Range of Motion, Non-Tender, Pedal Edema (mild edema) Wound/Incisions: Dressing Dry and Intact (to L knee, JEROMY intact with polar ice) Psy/Mental Status: Alert, Normal Affect, Normal Mood Consult PN Assessment/Plan Procedures: Procedures CT ABD & PELV W/CONTRAST (01/03/19) EMERGENCY DEPT VISIT (08/09/18) MRI JNT OF LWR EXTRE W/O DYE (01/02/19) TIS TRNFR F/C/C/M/N/A/G/H/F (08/30/18) X-RAY EXAM KNEE 4 OR MORE (12/19/18) (1) S/P total knee arthroplasty SNOMED Code(s): 5758137464265, 825023594, 3608108543151 Code(s): Z96.659 - PRESENCE OF UNSPECIFIED ARTIFICIAL KNEE JOINT Current Visit: Yes (2) HTN (hypertension) SNOMED Code(s): 45031808 Code(s): I10 - ESSENTIAL (PRIMARY) HYPERTENSION Current Visit: Yes (3) PMR (polymyalgia rheumatica) SNOMED Code(s): 74395792 Code(s): M35.3 - POLYMYALGIA RHEUMATICA Current Visit: Yes (4) Chronic pain SNOMED Code(s): 07842178 Code(s): G89.29 - OTHER CHRONIC PAIN Current Visit: Yes (5) Fibromyalgia SNOMED Code(s): 835464110 Code(s): M79.7 - FIBROMYALGIA Current Visit: Yes (6) Anxiety and depression SNOMED Code(s): 971675455 Code(s): F41.9 - ANXIETY DISORDER, UNSPECIFIED; F32.9 - MAJOR DEPRESSIVE DISORDER, SINGLE EPISODE, UNSPECIFIED Current Visit: Yes Problem List Initiated/Reviewed/Updated: Yes My Orders Last 24 Hours: My Active Orders 02/11/19 05:28 BMP [BASIC METABOLIC PANEL,BMP] [CHEM] AM Plan: THis 73 year old female admitted for L TKA with Dr Donovan. Hospitalist service consulted for medical management. 1. S/P L TKA: Orders per Orthopedics 2. HTN: Stable post-operatively. Continue Amlodipine. 3. PMR: Continue Prednisone. PPI. Gabapentin for chronic pain VTE prophylaxis: Recommended when Orthopedics deems appropriate Dispo: Plan for placement in [facility] for rehabilitation.
[2019-02-11] MEDS: Celecoxib 100 MG Cap PO SCH ×2 (10:03→20:33)
[2019-02-11] MEDS: predniSONE 5 MG Tab PO SCH (10:04)
[2019-02-11] MEDS: Aspirin 325 MG Tab.EC PO SCH ×2 (10:04→20:33)
[2019-02-11] MEDS: Famotidine 20 MG Tab PO SCH (10:05)
[2019-02-11] MEDS: Polyethylene Glycol 3350 Powder 17 GM Packet PO SCH (10:06)
[2019-02-11] MEDS: prednisoLONE Acetate 1% Ophth Susp 5 ML Bottle EYEBOTH SCH ×2 (10:09→20:34)
[2019-02-11 12:20] LABS: CHLORIDE,CL 108 mmol/L (98-107); SODIUM,NA 142 mmol/L (136-145)
--- NOTE | 2019-02-11 13:53 | PCM.SURGPN ---
<Joyce Castro R - Last Filed: 02/11/19 13:44> - General Info Date of Service: 02/11/19 Date of Surgery/Procedure: 02/10/19 POD#: 1 Functional Status: Reports: Pain Controlled, Tolerating Diet, Ambulating - Review of Systems General: Reports: No Symptoms Pulmonary: Reports: No Symptoms Cardiovascular: Reports: No Symptoms Gastrointestinal: Reports: Nausea. Denies: Vomiting Musculoskeletal: Reports: Leg Pain Systems Review Comment:: pt up to chair for breakfast tolerating PO intake well pain controlled with PO/IV pain medications mild relief with oxycodone but perhaps better relief with percocet 5/325 has been OOB ambulating plan is to transfer to [facility] - case management has her completed packet - Patient Data Vitals - Most Recent: Last Vital Signs Temp 98.7 F 02/11/19 12:00 Pulse 80 02/11/19 04:15 Resp 16 02/11/19 12:00 BP 109/71 02/11/19 12:00 Pulse Ox 92 L 02/11/19 12:00 Weight - Most Recent: 90.718 kg I&O - Last 24 Hours: Intake & Output 02/10/19 02/11/19 02/11/19 22:59 06:59 14:59 Intake Total 1050 1891 Output Total 600 1200 Balance 450 691 Lab Results Last 24 Hrs: Laboratory Results - last 24 hr 02/10/19 02/10/19 02/11/19 Range/Units 15:14 15:14 05:28 WBC 8.32 (4.0-11.0) K/uL RBC 4.25 L (4.30-5.90) M/uL Hgb 12.3 12.0 (12.0-16.0) g/dL Hct 39.0 38.6 (36.0-46.0) % MCV 91.8 (80.0-98.0) fL MCH 28.9 (27.0-32.0) pg MCHC 31.5 (31.0-37.0) g/dL RDW Std Deviation 49.7 (28.0-62.0) fl RDW Coeff of Mauri 15 (11.0-15.0) % Plt Count 219 (150-400) K/uL MPV 9.70 (7.40-12.00) fL Neut % (Auto) 71.2 (48.0-80.0) % Lymph % (Auto) 19.4 (16.0-40.0) % Newton % (Auto) 8.7 (0.0-15.0) % Eos % (Auto) 0.5 (0.0-7.0) % Baso % (Auto) 0.2 (0.0-1.5) % Neut # (Auto) 5.9 H (1.4-5.7) K/uL Lymph # (Auto) 1.6 (0.6-2.4) K/uL Newton # (Auto) 0.7 (0.0-0.8) K/uL Eos # (Auto) 0.0 (0.0-0.7) K/uL Baso # (Auto) 0.0 (0.0-0.1) K/uL Nucleated RBC % 0.0 /100WBC Nucleated RBCs # 0 K/uL Sodium 143 (136-145) mmol/L Potassium 3.3 L (3.5-5.1) mmol/L Chloride 108 H (98-107) mmol/L Carbon Dioxide 27.9 (21.0-32.0) mmol/L BUN 10 (7.0-18.0) mg/dL Creatinine 0.6 (0.6-1.0) mg/dL Est Cr Clr Drug Dosing 71.03 mL/min Estimated GFR (MDRD) > 60.0 ml/min Glucose 115 H (74-106) mg/dL Calcium 8.2 L (8.5-10.1) mg/dL Magnesium 2.0 (1.8-2.4) mg/dL 02/11/19 Range/Units 05:28 WBC (4.0-11.0) K/uL RBC (4.30-5.90) M/uL Hgb (12.0-16.0) g/dL Hct (36.0-46.0) % MCV (80.0-98.0) fL MCH (27.0-32.0) pg MCHC (31.0-37.0) g/dL RDW Std Deviation (28.0-62.0) fl RDW Coeff of Mauri (11.0-15.0) % Plt Count (150-400) K/uL MPV (7.40-12.00) fL Neut % (Auto) (48.0-80.0) % Lymph % (Auto) (16.0-40.0) % Newton % (Auto) (0.0-15.0) % Eos % (Auto) (0.0-7.0) % Baso % (Auto) (0.0-1.5) % Neut # (Auto) (1.4-5.7) K/uL Lymph # (Auto) (0.6-2.4) K/uL Newton # (Auto) (0.0-0.8) K/uL Eos # (Auto) (0.0-0.7) K/uL Baso # (Auto) (0.0-0.1) K/uL Nucleated RBC % /100WBC Nucleated RBCs # K/uL Sodium 142 (136-145) mmol/L Potassium 3.7 (3.5-5.1) mmol/L Chloride 108 H (98-107) mmol/L Carbon Dioxide 30.5 (21.0-32.0) mmol/L BUN 11 (7.0-18.0) mg/dL Creatinine 0.5 L (0.6-1.0) mg/dL Est Cr Clr Drug Dosing 85.24 mL/min Estimated GFR (MDRD) > 60.0 ml/min Glucose 139 H (74-106) mg/dL Calcium 8.6 (8.5-10.1) mg/dL Magnesium (1.8-2.4) mg/dL Med Orders - Current: Current Medications Al Hydroxide/Mg Hydroxide (Mag-Al Plus) 30 ml PO Q4H PRN PRN Reason: Indigestion Allopurinol (Zyloprim) 100 mg PO QPM [facility] Last Admin: 02/10/19 17:51 Dose: 100 mg Amlodipine Besylate (Norvasc) 10 mg PO QPM [facility] Last Admin: 02/10/19 17:50 Dose: 10 mg Aspirin (Ecotrin) 325 mg PO BID [facility] Last Admin: 02/11/19 10:04 Dose: 325 mg Bisacodyl (Dulcolax) 10 mg RECTAL DAILY PRN PRN Reason: Constipation Celecoxib (Celebrex) 200 mg PO BID [facility] Last Admin: 02/11/19 10:03 Dose: 200 mg Citalopram Hydrobromide (Celexa) 20 mg PO QPM [facility] Last Admin: 02/10/19 17:50 Dose: 20 mg Diphenhydramine HCl (Benadryl) 25 - 50 mg PO Q6H PRN PRN Reason: Itching Docusate Sodium (Colace) 100 mg PO BID PRN PRN Reason: Constipation Famotidine (Pepcid) 40 mg IVPUSH ONARRIVE [facility] Last Admin: 02/10/19 09:09 Dose: 40 mg Famotidine (Pepcid) 40 mg PO DAILY [facility] Last Admin: 02/11/19 10:05 Dose: 40 mg Fentanyl (Sublimaze) 50 - 100 mcg IVPUSH Q5M PRN PRN Reason: Pain (severe 7-10) Fluticasone Propionate (Flonase) 0 gm NASBOTH DAILY PRN PRN Reason: Allergies Furosemide (Lasix) 20 mg PO DAILY PRN PRN Reason: swollen legs Gabapentin (Neurontin) 100 mg PO QPM [facility] Last Admin: 02/10/19 17:50 Dose: 100 mg Hydromorphone HCl (Dilaudid) 0.5 - 1 mg IVPUSH Q3H PRN PRN Reason: Pain Last Admin: 02/10/19 14:33 Dose: 1 mg Acetaminophen 1,000 mg/ Premix 100 mls @ 400 mls/hr IV ONARRIVE [facility] Last Admin: 02/10/19 09:08 Dose: 400 mls/hr Cefazolin Sodium/Dextrose 2 gm (/ Premix) 50 mls @ 100 mls/hr IV ONCALL [facility] Last Admin: 02/10/19 18:20 Dose: 100 mls/hr Ropivacaine 49.25 ml/Ketorolac Tromethamine 30 mg/Epinephrine HCl 0.5 mg/ Clonidine HCl 80 mcg/ Sodium Chloride 75 mls @ 50 mls/sec INJECT ASDIRECTED [facility] Lactated Ringer's (Ringers, Lactated) 1,000 mls @ 100 mls/hr IV ASDIRECTED [facility] Last Admin: 02/10/19 15:45 Dose: 100 mls/hr Ondansetron HCl (Zofran) 4 mg IVPUSH Q6H PRN PRN Reason: Nausea/Vomiting Last Admin: 02/11/19 02:30 Dose: 4 mg Oxycodone/Acetaminophen (Percocet 325-5 Mg) 1 - 2 tab PO Q4H PRN PRN Reason: Pain Polyethylene Glycol (Miralax) 17 gm PO DAILY [facility] Last Admin: 02/11/19 10:06 Dose: 17 gm Prednisolone Acetate (Pred Forte 1% Ophth Susp) 1 ml EYEBOTH BID [facility] Last Admin: 02/11/19 10:09 Dose: Not Given Prednisone (Prednisone) 2.5 mg PO DAILY [facility] Last Admin: 02/11/19 10:04 Dose: 2.5 mg Scopolamine (Transderm-Scop) 1.5 mg TRDERM ONARRIVE [facility] Last Admin: 02/10/19 09:09 Dose: 1.5 mg Sodium Chloride (Saline Flush) 10 ml FLUSH ASDIRECTED PRN PRN Reason: Keep Vein Open Sodium Chloride (Saline Flush) 2.5 ml FLUSH ASDIRECTED PRN PRN Reason: Keep Vein Open Discontinued Medications Ephedrine Sulfate (Ephedrine Sulfate) Confirm Administered Dose 50 mg .ROUTE .STK-MED ONE Stop: 02/10/19 09:33 Fentanyl (Sublimaze) Confirm Administered Dose 100 mcg .ROUTE .STK-MED ONE Stop: 02/10/19 11:44 Tranexamic Acid 2,000 mg/ (Sodium Chloride) 120 mls @ 600 mls/hr IV ASDIRECTED ONE Stop: 02/10/19 08:11 Last Admin: 02/10/19 19:45 Dose: Not Given Sodium Chloride (Normal Saline) Confirm Administered Dose 40 mls @ as directed .ROUTE .STK-MED ONE Stop: 02/10/19 09:33 Cefazolin Sodium/Dextrose 2 gm (/ Premix) 50 mls @ 100 mls/hr IV Q8H [facility] Stop: 02/11/19 03:29 Last Admin: 02/11/19 02:30 Dose: 100 mls/hr Ketorolac Tromethamine (Toradol) 15 mg IVPUSH Q6H [facility] Stop: 02/11/19 05:00 Last Admin: 02/11/19 00:45 Dose: 15 mg Midazolam HCl (Versed 1 Mg/Ml) Confirm Administered Dose 2 mg .ROUTE .STK-MED ONE Stop: 02/10/19 09:34 Ondansetron HCl (Zofran) Confirm Administered Dose 4 mg .ROUTE .STK-MED ONE Stop: 02/10/19 09:33 Oxycodone HCl (Oxycodone) 5 - 10 mg PO Q4H PRN PRN Reason: Pain Stop: 02/11/19 06:00 Last Admin: 02/11/19 02:30 Dose: 10 mg Propofol (Diprivan 20 Ml) Confirm Administered Dose 400 mg .ROUTE .STK-MED ONE Stop: 02/10/19 09:34 Propofol (Diprivan 20 Ml) Confirm Administered Dose 200 mg .ROUTE .STK-MED ONE Stop: 02/10/19 11:55 Tranexamic Acid (Cyklokapron) Confirm Administered Dose 2,000 mg .ROUTE .STK- MED ONE Stop: 02/10/19 07:48 - Exam Wound/Incisions: Dressing Dry and Intact. No: Drainage, Erythema General: Alert, Oriented Cardiovascular: Regular Rate, Regular Rhythm Extremities: Other (exam LLE - at/ehl/gastroc 5/5, dp2+, sensation intact distally) Physical Findings Comment:: vss, afeb uo 2000+mL hgb 12.0 - Problem List Review Problem List Initiated/Reviewed/Updated: Yes - My Orders Last 24 Hours: Active Orders 24 hr Category Date Time Status Communication Order [RC] PRN Care 02/10/19 12:48 Active Communication Order [RC] PRN Care 02/10/19 12:48 Active Neurovascular Check [RC] Q2HR Care 02/10/19 12:48 Active Notify Provider Consults [RC] ASDIRECTED Care 02/10/19 12:54 Active Notify Provider Vital Signs [RC] ASDIRECTED Care 02/10/19 12:48 Active RT Incentive Spirometry [RC] Q1HWA Care 02/10/19 12:48 Active Urinary Catheter Removal [RC] ASDIRECTED Care 02/11/19 06:00 Active Vital Signs [RC] PER UNIT ROUTINE Care 02/10/19 12:48 Active Wound Care [RC] DAILY Care 02/10/19 12:48 Active Consult to Physician [CONS] Routine Cons 02/10/19 12:53 Active PT Evaluation and Treatment [CONS] Routine Cons 02/10/19 12:48 Active HEMOGLOBIN/HEMATOCRIT,HH [HEME] DAILY Lab 02/12/19 06:00 Ordered Acetaminophen/oxyCODONE [Percocet 325-5 MG] Med 02/11/19 06:00 Active 1 - 2 tab PO Q4H PRN Allopurinol [Zyloprim] Med 02/10/19 18:00 Active 100 mg PO QPM Alum Hydrox/Mag Hydrox/Simeth [Mag-Al Plus] Med 02/10/19 12:48 Active 30 ml PO Q4H PRN Aspirin [Ecotrin] Med 02/11/19 09:00 Active 325 mg PO BID Bisacodyl [Dulcolax] Med 02/10/19 12:48 Active 10 mg RECTAL DAILY PRN Celecoxib [CeleBREX] Med 02/11/19 09:00 Active 200 mg PO BID Citalopram [Celexa] Med 02/10/19 18:00 Active 20 mg PO QPM Docusate Sodium [Colace] Med 02/10/19 12:48 Active 100 mg PO BID PRN Famotidine [Pepcid] Med 02/11/19 09:00 Active 40 mg PO DAILY Fluticasone Propionate [Flonase] Med 02/10/19 12:52 Active 0 gm NASBOTH DAILY PRN Furosemide [Lasix] Med 02/10/19 12:52 Active 20 mg PO DAILY PRN Gabapentin [Neurontin] Med 02/10/19 18:00 Active 100 mg PO QPM HYDROmorphone [Dilaudid] Med 02/10/19 12:48 Active 0.5 - 1 mg IVPUSH Q3H PRN Ondansetron [Zofran] Med 02/10/19 12:48 Active 4 mg IVPUSH Q6H PRN Polyethylene Glycol 3350 [MiraLAX] Med 02/11/19 09:00 Active 17 gm PO DAILY Sodium Chloride 0.9% [Saline Flush] Med 02/10/19 12:51 Active 10 ml FLUSH ASDIRECTED PRN Sodium Chloride 0.9% [Saline Flush] Med 02/10/19 12:51 Active 2.5 ml FLUSH ASDIRECTED PRN amLODIPine [Norvasc] Med 02/10/19 18:00 Active 10 mg PO QPM diphenhydrAMINE [Benadryl] Med 02/10/19 12:48 Active 25 - 50 mg PO Q6H PRN fentaNYL [Sublimaze] Med 02/10/19 13:30 Active 50 - 100 mcg IVPUSH Q5M PRN predniSONE Med 02/11/19 09:00 Active 2.5 mg PO DAILY prednisoLONE acetate [Pred Forte 1% Ophth Susp] Med 02/10/19 21:00 Active 1 ml EYEBOTH BID Convert IV to Saline Lock [OM.PC] PRN Oth 02/11/19 06:00 Ordered Ice Therapy [OM.PC] Routine Ot 02/10/19 12:48 Ordered Medication Orders Al Hydroxide/Mg Hydroxide (Mag-Al Plus) 30 ml PO Q4H PRN PRN Reason: Indigestion Allopurinol (Zyloprim) 100 mg PO QPM [facility] Last Admin: 02/10/19 17:51 Dose: 100 mg Amlodipine Besylate (Norvasc) 10 mg PO QPM [facility] Last Admin: 02/10/19 17:50 Dose: 10 mg Aspirin (Ecotrin) 325 mg PO BID [facility] Last Admin: 02/11/19 10:04 Dose: 325 mg Bisacodyl (Dulcolax) 10 mg RECTAL DAILY PRN PRN Reason: Constipation Celecoxib (Celebrex) 200 mg PO BID [facility] Last Admin: 02/11/19 10:03 Dose: 200 mg Citalopram Hydrobromide (Celexa) 20 mg PO QPM [facility] Last Admin: 02/10/19 17:50 Dose: 20 mg Diphenhydramine HCl (Benadryl) 25 - 50 mg PO Q6H PRN PRN Reason: Itching Docusate Sodium (Colace) 100 mg PO BID PRN PRN Reason: Constipation Famotidine (Pepcid) 40 mg IVPUSH ONARRIVE [facility] Last Admin: 02/10/19 09:09 Dose: 40 mg Famotidine (Pepcid) 40 mg PO DAILY [facility] Last Admin: 02/11/19 10:05 Dose: 40 mg Fentanyl (Sublimaze) 50 - 100 mcg IVPUSH Q5M PRN PRN Reason: Pain (severe 7-10) Fluticasone Propionate (Flonase) 0 gm NASBOTH DAILY PRN PRN Reason: Allergies Furosemide (Lasix) 20 mg PO DAILY PRN PRN Reason: swollen legs Gabapentin (Neurontin) 100 mg PO QPM [facility] Last Admin: 02/10/19 17:50 Dose: 100 mg Hydromorphone HCl (Dilaudid) 0.5 - 1 mg IVPUSH Q3H PRN PRN Reason: Pain Last Admin: 02/10/19 14:33 Dose: 1 mg Acetaminophen 1,000 mg/ Premix 100 mls @ 400 mls/hr IV ONARRIVE [facility] Last Admin: 02/10/19 09:08 Dose: 400 mls/hr Cefazolin Sodium/Dextrose 2 gm (/ Premix) 50 mls @ 100 mls/hr IV ONCALL [facility] Last Admin: 02/10/19 18:20 Dose: 100 mls/hr Ropivacaine 49.25 ml/Ketorolac Tromethamine 30 mg/Epinephrine HCl 0.5 mg/ Clonidine HCl 80 mcg/ Sodium Chloride 75 mls @ 50 mls/sec INJECT ASDIRECTED [facility] Lactated Ringer's (Ringers, Lactated) 1,000 mls @ 100 mls/hr IV ASDIRECTED [facility] Last Admin: 02/10/19 15:45 Dose: 100 mls/hr Infusion: 02/10/19 15:45 Dose: 100 mls/hr Admin: 02/10/19 08:52 Dose: 100 mls/hr Ondansetron HCl (Zofran) 4 mg IVPUSH Q6H PRN PRN Reason: Nausea/Vomiting Last Admin: 02/11/19 02:30 Dose: 4 mg Admin: 02/10/19 17:44 Dose: 4 mg Oxycodone/Acetaminophen (Percocet 325-5 Mg) 1 - 2 tab PO Q4H PRN PRN Reason: Pain Polyethylene Glycol (Miralax) 17 gm PO DAILY [facility] Last Admin: 02/11/19 10:06 Dose: 17 gm Prednisolone Acetate (Pred Forte 1% Ophth Susp) 1 ml EYEBOTH BID [facility] Last Admin: 02/11/19 10:09 Dose: Not Given Admin: 02/10/19 19:45 Dose: Not Given Prednisone (Prednisone) 2.5 mg PO DAILY [facility] Last Admin: 02/11/19 10:04 Dose: 2.5 mg Scopolamine (Transderm-Scop) 1.5 mg TRDERM ONARRIVE [facility] Last Admin: 02/10/19 09:09 Dose: 1.5 mg Sodium Chloride (Saline Flush) 10 ml FLUSH ASDIRECTED PRN PRN Reason: Keep Vein Open Sodium Chloride (Saline Flush) 2.5 ml FLUSH ASDIRECTED PRN PRN Reason: Keep Vein Open - Assessment Assessment (Free Text/Narrative):: POD#1 L TKA - Plan Plan (Free Text/Narrative):: DC IV fluids - saline lock IV DC gonzalez DC [employer] - morphine IV prn breakthrough pain DC oxycodone - percocet 5/325 prn available ASA 325mg PO BID as DVT prophylaxis dressing change to aquacel prior to discharge PT today pt has wheeled walker or script has been written anticipate up to 72 hour stay for IV pain medication and continued physical therapy and SNF transfer pt will require FWW for safe mobility/stability until increased strength/gait independence s/p TKA - has been safely mobilizing in room with FWW. d/ch medications written plan to transfer to SNF on 02/13, Dr. Mahmood has agreed to follow her, will CC him on discharge summary <Izzy Donovan - Last Filed: 02/12/19 09:59> - Patient Data Vitals - Most Recent: Last Vital Signs Temp 97.4 F 02/12/19 07:15 Pulse 72 02/12/19 07:15 Resp 19 02/12/19 07:15 BP 118/58 L 02/12/19 07:15 Pulse Ox 93 L 02/12/19 07:15 I&O - Last 24 Hours: Intake & Output 02/11/19 02/12/19 02/12/19 22:59 06:59 14:59 Intake Total 600 450 Output Total 500 500 Balance 100 -50 Lab Results Last 24 Hrs: Laboratory Results - last 24 hr 02/11/19 02/12/19 Range/Units 05:28 05:51 Hgb 10.8 L (12.0-16.0) g/dL Hct 35.0 L (36.0-46.0) % Sodium 142 (136-145) mmol/L Potassium 3.7 (3.5-5.1) mmol/L Chloride 108 H (98-107) mmol/L Carbon Dioxide 30.5 (21.0-32.0) mmol/L BUN 11 (7.0-18.0) mg/dL Creatinine 0.5 L (0.6-1.0) mg/dL Est Cr Clr Drug Dosing 85.24 mL/min Estimated GFR (MDRD) > 60.0 ml/min Glucose 139 H (74-106) mg/dL Calcium 8.6 (8.5-10.1) mg/dL Med Orders - Current: Current Medications Al Hydroxide/Mg Hydroxide (Mag-Al Plus) 30 ml PO Q4H PRN PRN Reason: Indigestion Allopurinol (Zyloprim) 100 mg PO QPM [facility] Last Admin: 02/11/19 18:02 Dose: 100 mg Amlodipine Besylate (Norvasc) 10 mg PO QPM [facility] Last Admin: 02/11/19 18:05 Dose: 10 mg Aspirin (Ecotrin) 325 mg PO BID [facility] Last Admin: 02/12/19 08:36 Dose: 325 mg Bisacodyl (Dulcolax) 10 mg RECTAL DAILY PRN PRN Reason: Constipation Celecoxib (Celebrex) 200 mg PO BID [facility] Last Admin: 02/12/19 08:31 Dose: 200 mg Citalopram Hydrobromide (Celexa) 20 mg PO QPM [facility] Last Admin: 02/11/19 18:04 Dose: 20 mg Diphenhydramine HCl (Benadryl) 25 - 50 mg PO Q6H PRN PRN Reason: Itching Docusate Sodium (Colace) 100 mg PO BID PRN PRN Reason: Constipation Famotidine (Pepcid) 40 mg IVPUSH ONARRIVE [facility] Last Admin: 02/10/19 09:09 Dose: 40 mg Famotidine (Pepcid) 40 mg PO DAILY [facility] Last Admin: 02/12/19 08:31 Dose: 40 mg Fluticasone Propionate (Flonase) 0 gm NASBOTH DAILY PRN PRN Reason: Allergies Furosemide (Lasix) 20 mg PO DAILY PRN PRN Reason: swollen legs Gabapentin (Neurontin) 100 mg PO QPM [facility] Last Admin: 02/11/19 18:03 Dose: 100 mg Hydromorphone HCl (Dilaudid) 0.5 - 1 mg IVPUSH Q3H PRN PRN Reason: Pain Last Admin: 02/10/19 14:33 Dose: 1 mg Cefazolin Sodium/Dextrose 2 gm (/ Premix) 50 mls @ 100 mls/hr IV ONCALL [facility] Last Admin: 02/10/19 18:20 Dose: 100 mls/hr Lactated Ringer's (Ringers, Lactated) 1,000 mls @ 100 mls/hr IV ASDIRECTED [facility] Last Admin: 02/10/19 15:45 Dose: 100 mls/hr Ondansetron HCl (Zofran) 4 mg IVPUSH Q6H PRN PRN Reason: Nausea/Vomiting Last Admin: 02/11/19 02:30 Dose: 4 mg Oxycodone/Acetaminophen (Percocet 325-5 Mg) 1 - 2 tab PO Q4H PRN PRN Reason: Pain Last Admin: 02/12/19 04:15 Dose: 1 tab Polyethylene Glycol (Miralax) 17 gm PO DAILY [facility] Last Admin: 02/12/19 08:37 Dose: 17 gm Prednisolone Acetate (Pred Forte 1% Ophth Susp) 1 ml EYEBOTH BID [facility] Last Admin: 02/12/19 08:43 Dose: Not Given Prednisone (Prednisone) 2.5 mg PO DAILY [facility] Last Admin: 02/12/19 08:32 Dose: 2.5 mg Scopolamine (Transderm-Scop) 1.5 mg TRDERM ONARRIVE [facility] Last Admin: 02/10/19 09:09 Dose: 1.5 mg Sodium Chloride (Saline Flush) 10 ml FLUSH ASDIRECTED PRN PRN Reason: Keep Vein Open Sodium Chloride (Saline Flush) 2.5 ml FLUSH ASDIRECTED PRN PRN Reason: Keep Vein Open Discontinued Medications Ephedrine Sulfate (Ephedrine Sulfate) Confirm Administered Dose 50 mg .ROUTE .STK-MED ONE Stop: 02/10/19 09:33 Fentanyl (Sublimaze) Confirm Administered Dose 100 mcg .ROUTE .STK-MED ONE Stop: 02/10/19 11:44 Fentanyl (Sublimaze) 50 - 100 mcg IVPUSH Q5M PRN PRN Reason: Pain (severe 7-10) Acetaminophen 1,000 mg/ Premix 100 mls @ 400 mls/hr IV ONARRIVE [facility] Last Admin: 02/10/19 09:08 Dose: 400 mls/hr Ropivacaine 49.25 ml/Ketorolac Tromethamine 30 mg/Epinephrine HCl 0.5 mg/ Clonidine HCl 80 mcg/ Sodium Chloride 75 mls @ 50 mls/sec INJECT ASDIRECTED [facility] Tranexamic Acid 2,000 mg/ (Sodium Chloride) 120 mls @ 600 mls/hr IV ASDIRECTED ONE Stop: 02/10/19 08:11 Last Admin: 02/10/19 19:45 Dose: Not Given Sodium Chloride (Normal Saline) Confirm Administered Dose 40 mls @ as directed .ROUTE .STK-MED ONE Stop: 02/10/19 09:33 Cefazolin Sodium/Dextrose 2 gm (/ Premix) 50 mls @ 100 mls/hr IV Q8H [facility] Stop: 02/11/19 03:29 Last Admin: 02/11/19 02:30 Dose: 100 mls/hr Ketorolac Tromethamine (Toradol) 15 mg IVPUSH Q6H [facility] Stop: 02/11/19 05:00 Last Admin: 02/11/19 00:45 Dose: 15 mg Midazolam HCl (Versed 1 Mg/Ml) Confirm Administered Dose 2 mg .ROUTE .STK-MED ONE Stop: 02/10/19 09:34 Ondansetron HCl (Zofran) Confirm Administered Dose 4 mg .ROUTE .STK-MED ONE Stop: 02/10/19 09:33 Oxycodone HCl (Oxycodone) 5 - 10 mg PO Q4H PRN PRN Reason: Pain Stop: 02/11/19 06:00 Last Admin: 02/11/19 02:30 Dose: 10 mg Propofol (Diprivan 20 Ml) Confirm Administered Dose 400 mg .ROUTE .STK-MED ONE Stop: 02/10/19 09:34 Propofol (Diprivan 20 Ml) Confirm Administered Dose 200 mg .ROUTE .STK-MED ONE Stop: 02/10/19 11:55 Tranexamic Acid (Cyklokapron) Confirm Administered Dose 2,000 mg .ROUTE .STK- MED ONE Stop: 02/10/19 07:48 - My Orders Last 24 Hours: Active Orders 24 hr Category Date Time Status Urinary Catheter Insertion [Insert Urinary Catheter] [ Care 02/11/19 18:45 Ordered OM.PC] Q24H Aspirin [Ecotrin] Med 02/11/19 09:00 Active 325 mg PO BID Celecoxib [CeleBREX] Med 02/11/19 09:00 Active 200 mg PO BID Famotidine [Pepcid] Med 02/11/19 09:00 Active 40 mg PO DAILY Polyethylene Glycol 3350 [MiraLAX] Med 02/11/19 09:00 Active 17 gm PO DAILY predniSONE Med 02/11/19 09:00 Active 2.5 mg PO DAILY Medication Orders Al Hydroxide/Mg Hydroxide (Mag-Al Plus) 30 ml PO Q4H PRN PRN Reason: Indigestion Allopurinol (Zyloprim) 100 mg PO QPM [facility] Last Admin: 02/11/19 18:02 Dose: 100 mg Admin: 02/10/19 17:51 Dose: 100 mg Amlodipine Besylate (Norvasc) 10 mg PO QPM [facility] Last Admin: 02/11/19 18:05 Dose: 10 mg Admin: 02/10/19 17:50 Dose: 10 mg Aspirin (Ecotrin) 325 mg PO BID [facility] Last Admin: 02/12/19 08:36 Dose: 325 mg Admin: 02/11/19 20:33 Dose: 325 mg Admin: 02/11/19 10:04 Dose: 325 mg Bisacodyl (Dulcolax) 10 mg RECTAL DAILY PRN PRN Reason: Constipation Celecoxib (Celebrex) 200 mg PO BID [facility] Last Admin: 02/12/19 08:31 Dose: 200 mg Admin: 02/11/19 20:33 Dose: 200 mg Admin: 02/11/19 10:03 Dose: 200 mg Citalopram Hydrobromide (Celexa) 20 mg PO QPM [facility] Last Admin: 02/11/19 18:04 Dose: 20 mg Admin: 02/10/19 17:50 Dose: 20 mg Diphenhydramine HCl (Benadryl) 25 - 50 mg PO Q6H PRN PRN Reason: Itching Docusate Sodium (Colace) 100 mg PO BID PRN PRN Reason: Constipation Famotidine (Pepcid) 40 mg IVPUSH ONARRIVE [facility] Last Admin: 02/10/19 09:09 Dose: 40 mg Famotidine (Pepcid) 40 mg PO DAILY [facility] Last Admin: 02/12/19 08:31 Dose: 40 mg Admin: 02/11/19 10:05 Dose: 40 mg Fluticasone Propionate (Flonase) 0 gm NASBOTH DAILY PRN PRN Reason: Allergies Furosemide (Lasix) 20 mg PO DAILY PRN PRN Reason: swollen legs Gabapentin (Neurontin) 100 mg PO QPM [facility] Last Admin: 02/11/19 18:03 Dose: 100 mg Admin: 02/10/19 17:50 Dose: 100 mg Hydromorphone HCl (Dilaudid) 0.5 - 1 mg IVPUSH Q3H PRN PRN Reason: Pain Last Admin: 02/10/19 14:33 Dose: 1 mg Cefazolin Sodium/Dextrose 2 gm (/ Premix) 50 mls @ 100 mls/hr IV ONCALL [facility] Last Admin: 02/10/19 18:20 Dose: 100 mls/hr Lactated Ringer's (Ringers, Lactated) 1,000 mls @ 100 mls/hr IV ASDIRECTED [facility] Last Admin: 02/10/19 15:45 Dose: 100 mls/hr Infusion: 02/10/19 15:45 Dose: 100 mls/hr Admin: 02/10/19 08:52 Dose: 100 mls/hr Ondansetron HCl (Zofran) 4 mg IVPUSH Q6H PRN PRN Reason: Nausea/Vomiting Last Admin: 02/11/19 02:30 Dose: 4 mg Admin: 02/10/19 17:44 Dose: 4 mg Oxycodone/Acetaminophen (Percocet 325-5 Mg) 1 - 2 tab PO Q4H PRN PRN Reason: Pain Last Admin: 02/12/19 04:15 Dose: 1 tab Admin: 02/11/19 15:35 Dose: 1 tab Polyethylene Glycol (Miralax) 17 gm PO DAILY [facility] Last Admin: 02/12/19 08:37 Dose: 17 gm Admin: 02/11/19 10:06 Dose: 17 gm Prednisolone Acetate (Pred Forte 1% Ophth Susp) 1 ml EYEBOTH BID [facility] Last Admin: 02/12/19 08:43 Dose: Not Given Admin: 02/11/19 20:34 Dose: Not Given Admin: 02/11/19 10:09 Dose: Not Given Admin: 02/10/19 19:45 Dose: Not Given Prednisone (Prednisone) 2.5 mg PO DAILY [facility] Last Admin: 02/12/19 08:32 Dose: 2.5 mg Admin: 02/11/19 10:04 Dose: 2.5 mg Scopolamine (Transderm-Scop) 1.5 mg TRDERM ONARRIVE [facility] Last Admin: 02/10/19 09:09 Dose: 1.5 mg Sodium Chloride (Saline Flush) 10 ml FLUSH ASDIRECTED PRN PRN Reason: Keep Vein Open Sodium Chloride (Saline Flush) 2.5 ml FLUSH ASDIRECTED PRN PRN Reason: Keep Vein Open - Plan Plan (Free Text/Narrative):: Late entry Patient seen and examined at 1830 on 02/11/19. She states pain is fairly well controlled. She was up with PT today. Agree with above note. Plan for discharge to [facility] on .
[2019-02-11] MEDS: Acetaminophen/oxyCODONE 325-5 MG Tab PO PRN (15:35)
[2019-02-11] MEDS: Allopurinol 100 MG Tab PO SCH (18:02)
[2019-02-11] MEDS: Gabapentin 100 MG Cap PO SCH (18:03)
[2019-02-11] MEDS: Citalopram 20 MG Tab PO SCH (18:04)
[2019-02-11] MEDS: amLODIPine 2.5 MG Tab PO SCH (18:05)
[2019-02-12] MEDS: Acetaminophen/oxyCODONE 325-5 MG Tab PO PRN (04:15)
[2019-02-12] MEDS: Famotidine 20 MG Tab PO SCH (08:31)
[2019-02-12] MEDS: Celecoxib 100 MG Cap PO SCH ×2 (08:31→20:45)
[2019-02-12] MEDS: predniSONE 5 MG Tab PO SCH (08:32)
[2019-02-12] MEDS: Aspirin 325 MG Tab.EC PO SCH ×2 (08:36→20:46)
[2019-02-12] MEDS: Polyethylene Glycol 3350 Powder 17 GM Packet PO SCH (08:37)
[2019-02-12] MEDS: prednisoLONE Acetate 1% Ophth Susp 5 ML Bottle EYEBOTH SCH ×2 (08:43→20:51)
[2019-02-12] MEDS: Acetaminophen 500 MG Tab PO PRN ×2 (11:21→17:35)
--- NOTE | 2019-02-12 12:06 | PCM.SURGPN ---
- General Info Date of Service: 02/12/19 POD#: 2 Functional Status: Reports: Pain Controlled - Review of Systems General: Reports: No Symptoms HEENT: Reports: No Symptoms Pulmonary: Reports: No Symptoms Cardiovascular: Reports: No Symptoms Gastrointestinal: Reports: No Symptoms Systems Review Comment:: Patient sitting up in chair. Pain controlled. Feels stronger meds make her goofy , has been changed to scheduled Tylenol. No other concerns. - Patient Data Vitals - Most Recent: Last Vital Signs Temp 98.6 F 02/12/19 11:38 Pulse 73 02/12/19 11:38 Resp 14 02/12/19 11:38 BP 129/61 02/12/19 11:38 Pulse Ox 93 L 02/12/19 11:38 Weight - Most Recent: 90.718 kg I&O - Last 24 Hours: Intake & Output 02/11/19 02/12/19 02/12/19 22:59 06:59 14:59 Intake Total 600 450 Output Total 500 500 Balance 100 -50 Lab Results Last 24 Hrs: Laboratory Results - last 24 hr 02/11/19 02/12/19 Range/Units 05:28 05:51 Hgb 10.8 L (12.0-16.0) g/dL Hct 35.0 L (36.0-46.0) % Sodium 142 (136-145) mmol/L Potassium 3.7 (3.5-5.1) mmol/L Chloride 108 H (98-107) mmol/L Carbon Dioxide 30.5 (21.0-32.0) mmol/L BUN 11 (7.0-18.0) mg/dL Creatinine 0.5 L (0.6-1.0) mg/dL Est Cr Clr Drug Dosing 85.24 mL/min Estimated GFR (MDRD) > 60.0 ml/min Glucose 139 H (74-106) mg/dL Calcium 8.6 (8.5-10.1) mg/dL Med Orders - Current: Current Medications Acetaminophen (Tylenol Extra Strength) 1,000 mg PO Q6H PRN PRN Reason: Pain (moderate 4-6) Last Admin: 02/12/19 11:21 Dose: 1,000 mg Al Hydroxide/Mg Hydroxide (Mag-Al Plus) 30 ml PO Q4H PRN PRN Reason: Indigestion Allopurinol (Zyloprim) 100 mg PO QPM [facility] Last Admin: 02/11/19 18:02 Dose: 100 mg Amlodipine Besylate (Norvasc) 10 mg PO QPM [facility] Last Admin: 02/11/19 18:05 Dose: 10 mg Aspirin (Ecotrin) 325 mg PO BID [facility] Last Admin: 02/12/19 08:36 Dose: 325 mg Bisacodyl (Dulcolax) 10 mg RECTAL DAILY PRN PRN Reason: Constipation Celecoxib (Celebrex) 200 mg PO BID [facility] Last Admin: 02/12/19 08:31 Dose: 200 mg Citalopram Hydrobromide (Celexa) 20 mg PO QPM [facility] Last Admin: 02/11/19 18:04 Dose: 20 mg Diphenhydramine HCl (Benadryl) 25 - 50 mg PO Q6H PRN PRN Reason: Itching Docusate Sodium (Colace) 100 mg PO BID PRN PRN Reason: Constipation Famotidine (Pepcid) 40 mg IVPUSH ONARRIVE [facility] Last Admin: 02/10/19 09:09 Dose: 40 mg Famotidine (Pepcid) 40 mg PO DAILY [facility] Last Admin: 02/12/19 08:31 Dose: 40 mg Fluticasone Propionate (Flonase) 0 gm NASBOTH DAILY PRN PRN Reason: Allergies Furosemide (Lasix) 20 mg PO DAILY PRN PRN Reason: swollen legs Gabapentin (Neurontin) 100 mg PO QPM [facility] Last Admin: 02/11/19 18:03 Dose: 100 mg Hydromorphone HCl (Dilaudid) 0.5 - 1 mg IVPUSH Q3H PRN PRN Reason: Pain Last Admin: 02/10/19 14:33 Dose: 1 mg Cefazolin Sodium/Dextrose 2 gm (/ Premix) 50 mls @ 100 mls/hr IV ONCALL [facility] Last Admin: 02/10/19 18:20 Dose: 100 mls/hr Lactated Ringer's (Ringers, Lactated) 1,000 mls @ 100 mls/hr IV ASDIRECTED [facility] Last Admin: 02/10/19 15:45 Dose: 100 mls/hr Ondansetron HCl (Zofran) 4 mg IVPUSH Q6H PRN PRN Reason: Nausea/Vomiting Last Admin: 02/11/19 02:30 Dose: 4 mg Oxycodone/Acetaminophen (Percocet 325-5 Mg) 1 - 2 tab PO Q4H PRN PRN Reason: Pain Last Admin: 02/12/19 04:15 Dose: 1 tab Polyethylene Glycol (Miralax) 17 gm PO DAILY [facility] Last Admin: 02/12/19 08:37 Dose: 17 gm Prednisolone Acetate (Pred Forte 1% Ophth Susp) 1 ml EYEBOTH BID [facility] Last Admin: 02/12/19 08:43 Dose: Not Given Prednisone (Prednisone) 2.5 mg PO DAILY [facility] Last Admin: 02/12/19 08:32 Dose: 2.5 mg Scopolamine (Transderm-Scop) 1.5 mg TRDERM ONARRIVE [facility] Last Admin: 02/10/19 09:09 Dose: 1.5 mg Sodium Chloride (Saline Flush) 10 ml FLUSH ASDIRECTED PRN PRN Reason: Keep Vein Open Sodium Chloride (Saline Flush) 2.5 ml FLUSH ASDIRECTED PRN PRN Reason: Keep Vein Open Discontinued Medications Ephedrine Sulfate (Ephedrine Sulfate) Confirm Administered Dose 50 mg .ROUTE .STK-MED ONE Stop: 02/10/19 09:33 Fentanyl (Sublimaze) Confirm Administered Dose 100 mcg .ROUTE .STK-MED ONE Stop: 02/10/19 11:44 Fentanyl (Sublimaze) 50 - 100 mcg IVPUSH Q5M PRN PRN Reason: Pain (severe 7-10) Acetaminophen 1,000 mg/ Premix 100 mls @ 400 mls/hr IV ONARRIVE [facility] Last Admin: 02/10/19 09:08 Dose: 400 mls/hr Ropivacaine 49.25 ml/Ketorolac Tromethamine 30 mg/Epinephrine HCl 0.5 mg/ Clonidine HCl 80 mcg/ Sodium Chloride 75 mls @ 50 mls/sec INJECT ASDIRECTED [facility] Tranexamic Acid 2,000 mg/ (Sodium Chloride) 120 mls @ 600 mls/hr IV ASDIRECTED ONE Stop: 02/10/19 08:11 Last Admin: 02/10/19 19:45 Dose: Not Given Sodium Chloride (Normal Saline) Confirm Administered Dose 40 mls @ as directed .ROUTE .STK-MED ONE Stop: 02/10/19 09:33 Cefazolin Sodium/Dextrose 2 gm (/ Premix) 50 mls @ 100 mls/hr IV Q8H [facility] Stop: 02/11/19 03:29 Last Admin: 02/11/19 02:30 Dose: 100 mls/hr Ketorolac Tromethamine (Toradol) 15 mg IVPUSH Q6H [facility] Stop: 02/11/19 05:00 Last Admin: 02/11/19 00:45 Dose: 15 mg Midazolam HCl (Versed 1 Mg/Ml) Confirm Administered Dose 2 mg .ROUTE .STK-MED ONE Stop: 02/10/19 09:34 Ondansetron HCl (Zofran) Confirm Administered Dose 4 mg .ROUTE .STK-MED ONE Stop: 02/10/19 09:33 Oxycodone HCl (Oxycodone) 5 - 10 mg PO Q4H PRN PRN Reason: Pain Stop: 02/11/19 06:00 Last Admin: 02/11/19 02:30 Dose: 10 mg Propofol (Diprivan 20 Ml) Confirm Administered Dose 400 mg .ROUTE .STK-MED ONE Stop: 02/10/19 09:34 Propofol (Diprivan 20 Ml) Confirm Administered Dose 200 mg .ROUTE .STK-MED ONE Stop: 02/10/19 11:55 Tranexamic Acid (Cyklokapron) Confirm Administered Dose 2,000 mg .ROUTE .STK- MED ONE Stop: 02/10/19 07:48 - Exam General: Alert, Oriented HEENT: Pupils Equal Neck: Supple Lungs: Normal Respiratory Effort Cardiovascular: Regular Rate GI/Abdominal Exam: Soft Psy/Mental Status: Alert, Normal Affect, Normal Mood Physical Findings Comment:: Exam of the knee shows incision to be clean and healing well. No calf TTP. AT/ EHL/gastroc 5. Sensation intact. DP 2+. - Problem List Review Problem List Initiated/Reviewed/Updated: Yes - My Orders Last 24 Hours: Active Orders 24 hr Category Date Time Status Urinary Catheter Insertion [Insert Urinary Catheter] [ Care 02/11/19 18:45 Ordered OM.PC] Q24H Acetaminophen [Tylenol Extra Strength] Med 02/12/19 10:42 Active 1,000 mg PO Q6H PRN Medication Orders Acetaminophen (Tylenol Extra Strength) 1,000 mg PO Q6H PRN PRN Reason: Pain (moderate 4-6) Last Admin: 02/12/19 11:21 Dose: 1,000 mg Al Hydroxide/Mg Hydroxide (Mag-Al Plus) 30 ml PO Q4H PRN PRN Reason: Indigestion Allopurinol (Zyloprim) 100 mg PO QPM [facility] Last Admin: 02/11/19 18:02 Dose: 100 mg Admin: 02/10/19 17:51 Dose: 100 mg Amlodipine Besylate (Norvasc) 10 mg PO QPM [facility] Last Admin: 02/11/19 18:05 Dose: 10 mg Admin: 02/10/19 17:50 Dose: 10 mg Aspirin (Ecotrin) 325 mg PO BID [facility] Last Admin: 02/12/19 08:36 Dose: 325 mg Admin: 02/11/19 20:33 Dose: 325 mg Admin: 02/11/19 10:04 Dose: 325 mg Bisacodyl (Dulcolax) 10 mg RECTAL DAILY PRN PRN Reason: Constipation Celecoxib (Celebrex) 200 mg PO BID [facility] Last Admin: 02/12/19 08:31 Dose: 200 mg Admin: 02/11/19 20:33 Dose: 200 mg Admin: 02/11/19 10:03 Dose: 200 mg Citalopram Hydrobromide (Celexa) 20 mg PO QPM [facility] Last Admin: 02/11/19 18:04 Dose: 20 mg Admin: 02/10/19 17:50 Dose: 20 mg Diphenhydramine HCl (Benadryl) 25 - 50 mg PO Q6H PRN PRN Reason: Itching Docusate Sodium (Colace) 100 mg PO BID PRN PRN Reason: Constipation Famotidine (Pepcid) 40 mg IVPUSH ONARRIVE [facility] Last Admin: 02/10/19 09:09 Dose: 40 mg Famotidine (Pepcid) 40 mg PO DAILY [facility] Last Admin: 02/12/19 08:31 Dose: 40 mg Admin: 02/11/19 10:05 Dose: 40 mg Fluticasone Propionate (Flonase) 0 gm NASBOTH DAILY PRN PRN Reason: Allergies Furosemide (Lasix) 20 mg PO DAILY PRN PRN Reason: swollen legs Gabapentin (Neurontin) 100 mg PO QPM [facility] Last Admin: 02/11/19 18:03 Dose: 100 mg Admin: 02/10/19 17:50 Dose: 100 mg Hydromorphone HCl (Dilaudid) 0.5 - 1 mg IVPUSH Q3H PRN PRN Reason: Pain Last Admin: 02/10/19 14:33 Dose: 1 mg Cefazolin Sodium/Dextrose 2 gm (/ Premix) 50 mls @ 100 mls/hr IV ONCALL [facility] Last Admin: 02/10/19 18:20 Dose: 100 mls/hr Lactated Ringer's (Ringers, Lactated) 1,000 mls @ 100 mls/hr IV ASDIRECTED [facility] Last Admin: 02/10/19 15:45 Dose: 100 mls/hr Infusion: 02/10/19 15:45 Dose: 100 mls/hr Admin: 02/10/19 08:52 Dose: 100 mls/hr Ondansetron HCl (Zofran) 4 mg IVPUSH Q6H PRN PRN Reason: Nausea/Vomiting Last Admin: 02/11/19 02:30 Dose: 4 mg Admin: 02/10/19 17:44 Dose: 4 mg Oxycodone/Acetaminophen (Percocet 325-5 Mg) 1 - 2 tab PO Q4H PRN PRN Reason: Pain Last Admin: 02/12/19 04:15 Dose: 1 tab Admin: 02/11/19 15:35 Dose: 1 tab Polyethylene Glycol (Miralax) 17 gm PO DAILY [facility] Last Admin: 02/12/19 08:37 Dose: 17 gm Admin: 02/11/19 10:06 Dose: 17 gm Prednisolone Acetate (Pred Forte 1% Ophth Susp) 1 ml EYEBOTH BID [facility] Last Admin: 02/12/19 08:43 Dose: Not Given Admin: 02/11/19 20:34 Dose: Not Given Admin: 02/11/19 10:09 Dose: Not Given Admin: 02/10/19 19:45 Dose: Not Given Prednisone (Prednisone) 2.5 mg PO DAILY [facility] Last Admin: 02/12/19 08:32 Dose: 2.5 mg Admin: 02/11/19 10:04 Dose: 2.5 mg Scopolamine (Transderm-Scop) 1.5 mg TRDERM ONARRIVE [facility] Last Admin: 02/10/19 09:09 Dose: 1.5 mg Sodium Chloride (Saline Flush) 10 ml FLUSH ASDIRECTED PRN PRN Reason: Keep Vein Open Sodium Chloride (Saline Flush) 2.5 ml FLUSH ASDIRECTED PRN PRN Reason: Keep Vein Open - Plan Plan (Free Text/Narrative):: 1. dressing changed today 2. continue current plan for pain 3. PT 4. ASA/ SCD/HIGINIO for DVT prophylaxis 5. plan discharge tomorrow to [facility]
[2019-02-12] MEDS: Citalopram 20 MG Tab PO SCH (17:34)
[2019-02-12] MEDS: amLODIPine 2.5 MG Tab PO SCH (17:34)
[2019-02-12] MEDS: Gabapentin 100 MG Cap PO SCH (17:35)
[2019-02-12] MEDS: Allopurinol 100 MG Tab PO SCH (17:35)
[2019-02-13] MEDS: Acetaminophen 500 MG Tab PO PRN ×2 (04:13→11:11)
--- NOTE | 2019-02-13 08:16 | PCM.SURGPN ---
- General Info Date of Service: 02/13/19 Date of Surgery/Procedure: 02/10/19 POD#: 3 Functional Status: Reports: Pain Controlled, Tolerating Diet, Ambulating, Urinating - Review of Systems General: Reports: No Symptoms Pulmonary: Reports: No Symptoms. Denies: Shortness of Breath Cardiovascular: Reports: No Symptoms. Denies: Chest Pain, Lightheadedness Gastrointestinal: Reports: No Symptoms Musculoskeletal: Reports: Leg Pain Systems Review Comment:: pt resting comfortably in bed pain better controlled today no specific concerns ready for transfer to [facility] today - Patient Data Vitals - Most Recent: Last Vital Signs Temp 96.8 F 02/13/19 07:41 Pulse 74 02/13/19 07:41 Resp 18 02/13/19 07:41 BP 131/63 02/13/19 07:41 Pulse Ox 88 L 02/13/19 07:41 Weight - Most Recent: 90.718 kg I&O - Last 24 Hours: Intake & Output 02/12/19 02/13/19 02/13/19 22:59 06:59 14:59 Intake Total 1160 900 Output Total 1100 1600 Balance 60 -700 Med Orders - Current: Current Medications Acetaminophen (Tylenol Extra Strength) 1,000 mg PO Q6H PRN PRN Reason: Pain (moderate 4-6) Last Admin: 02/13/19 04:13 Dose: 1,000 mg Al Hydroxide/Mg Hydroxide (Mag-Al Plus) 30 ml PO Q4H PRN PRN Reason: Indigestion Allopurinol (Zyloprim) 100 mg PO QPM [facility] Last Admin: 02/12/19 17:35 Dose: 100 mg Amlodipine Besylate (Norvasc) 10 mg PO QPM [facility] Last Admin: 02/12/19 17:34 Dose: 10 mg Aspirin (Ecotrin) 325 mg PO BID [facility] Last Admin: 02/12/19 20:46 Dose: 325 mg Bisacodyl (Dulcolax) 10 mg RECTAL DAILY PRN PRN Reason: Constipation Celecoxib (Celebrex) 200 mg PO BID [facility] Last Admin: 02/12/19 20:45 Dose: 200 mg Citalopram Hydrobromide (Celexa) 20 mg PO QPM [facility] Last Admin: 02/12/19 17:34 Dose: 20 mg Diphenhydramine HCl (Benadryl) 25 - 50 mg PO Q6H PRN PRN Reason: Itching Docusate Sodium (Colace) 100 mg PO BID PRN PRN Reason: Constipation Famotidine (Pepcid) 40 mg IVPUSH ONARRIVE [facility] Last Admin: 02/10/19 09:09 Dose: 40 mg Famotidine (Pepcid) 40 mg PO DAILY [facility] Last Admin: 02/12/19 08:31 Dose: 40 mg Fluticasone Propionate (Flonase) 0 gm NASBOTH DAILY PRN PRN Reason: Allergies Furosemide (Lasix) 20 mg PO DAILY PRN PRN Reason: swollen legs Gabapentin (Neurontin) 100 mg PO QPM [facility] Last Admin: 02/12/19 17:35 Dose: 100 mg Hydromorphone HCl (Dilaudid) 0.5 - 1 mg IVPUSH Q3H PRN PRN Reason: Pain Last Admin: 02/10/19 14:33 Dose: 1 mg Cefazolin Sodium/Dextrose 2 gm (/ Premix) 50 mls @ 100 mls/hr IV ONCALL [facility] Last Admin: 02/10/19 18:20 Dose: 100 mls/hr Lactated Ringer's (Ringers, Lactated) 1,000 mls @ 100 mls/hr IV ASDIRECTED [facility] Last Admin: 02/10/19 15:45 Dose: 100 mls/hr Ondansetron HCl (Zofran) 4 mg IVPUSH Q6H PRN PRN Reason: Nausea/Vomiting Last Admin: 02/11/19 02:30 Dose: 4 mg Oxycodone/Acetaminophen (Percocet 325-5 Mg) 1 - 2 tab PO Q4H PRN PRN Reason: Pain Last Admin: 02/12/19 04:15 Dose: 1 tab Polyethylene Glycol (Miralax) 17 gm PO DAILY [facility] Last Admin: 02/12/19 08:37 Dose: 17 gm Prednisolone Acetate (Pred Forte 1% Ophth Susp) 1 ml EYEBOTH BID [facility] Last Admin: 02/12/19 20:51 Dose: Not Given Prednisone (Prednisone) 2.5 mg PO DAILY [facility] Last Admin: 02/12/19 08:32 Dose: 2.5 mg Scopolamine (Transderm-Scop) 1.5 mg TRDERM ONARRIVE [facility] Last Admin: 02/10/19 09:09 Dose: 1.5 mg Sodium Chloride (Saline Flush) 10 ml FLUSH ASDIRECTED PRN PRN Reason: Keep Vein Open Sodium Chloride (Saline Flush) 2.5 ml FLUSH ASDIRECTED PRN PRN Reason: Keep Vein Open Discontinued Medications Ephedrine Sulfate (Ephedrine Sulfate) Confirm Administered Dose 50 mg .ROUTE .STK-MED ONE Stop: 02/10/19 09:33 Fentanyl (Sublimaze) Confirm Administered Dose 100 mcg .ROUTE .STK-MED ONE Stop: 02/10/19 11:44 Fentanyl (Sublimaze) 50 - 100 mcg IVPUSH Q5M PRN PRN Reason: Pain (severe 7-10) Acetaminophen 1,000 mg/ Premix 100 mls @ 400 mls/hr IV ONARRIVE [facility] Last Admin: 02/10/19 09:08 Dose: 400 mls/hr Ropivacaine 49.25 ml/Ketorolac Tromethamine 30 mg/Epinephrine HCl 0.5 mg/ Clonidine HCl 80 mcg/ Sodium Chloride 75 mls @ 50 mls/sec INJECT ASDIRECTED [facility] Tranexamic Acid 2,000 mg/ (Sodium Chloride) 120 mls @ 600 mls/hr IV ASDIRECTED ONE Stop: 02/10/19 08:11 Last Admin: 02/10/19 19:45 Dose: Not Given Sodium Chloride (Normal Saline) Confirm Administered Dose 40 mls @ as directed .ROUTE .STK-MED ONE Stop: 02/10/19 09:33 Cefazolin Sodium/Dextrose 2 gm (/ Premix) 50 mls @ 100 mls/hr IV Q8H [facility] Stop: 02/11/19 03:29 Last Admin: 02/11/19 02:30 Dose: 100 mls/hr Ketorolac Tromethamine (Toradol) 15 mg IVPUSH Q6H [facility] Stop: 02/11/19 05:00 Last Admin: 02/11/19 00:45 Dose: 15 mg Midazolam HCl (Versed 1 Mg/Ml) Confirm Administered Dose 2 mg .ROUTE .STK-MED ONE Stop: 02/10/19 09:34 Ondansetron HCl (Zofran) Confirm Administered Dose 4 mg .ROUTE .STK-MED ONE Stop: 02/10/19 09:33 Oxycodone HCl (Oxycodone) 5 - 10 mg PO Q4H PRN PRN Reason: Pain Stop: 02/11/19 06:00 Last Admin: 02/11/19 02:30 Dose: 10 mg Propofol (Diprivan 20 Ml) Confirm Administered Dose 400 mg .ROUTE .STK-MED ONE Stop: 02/10/19 09:34 Propofol (Diprivan 20 Ml) Confirm Administered Dose 200 mg .ROUTE .STK-MED ONE Stop: 02/10/19 11:55 Tranexamic Acid (Cyklokapron) Confirm Administered Dose 2,000 mg .ROUTE .STK- MED ONE Stop: 02/10/19 07:48 - Exam Wound/Incisions: Dressing Dry and Intact General: Alert, Oriented Cardiovascular: Regular Rate, Regular Rhythm Extremities: Other (exam LLE - at/ehl/gastroc 5/5, dp 2+, sensation intact distally) Physical Findings Comment:: vss, afeb O2 sat on room air at rest is <90% hgb 10.8 - Problem List & Annotations (1) S/P total knee arthroplasty SNOMED Code(s): 8020460380307, 178505649, 4467641196344 Code(s): Z96.659 - PRESENCE OF UNSPECIFIED ARTIFICIAL KNEE JOINT Status: Acute Current Visit: Yes - Problem List Review Problem List Initiated/Reviewed/Updated: Yes - My Orders Last 24 Hours: Active Orders 24 hr Category Date Time Status Ready for Discharge [RC] PER UNIT ROUTINE Care 02/13/19 08:07 Ordered Acetaminophen [Tylenol Extra Strength] Med 02/12/19 10:42 Active 1,000 mg PO Q6H PRN Medication Orders Acetaminophen (Tylenol Extra Strength) 1,000 mg PO Q6H PRN PRN Reason: Pain (moderate 4-6) Last Admin: 02/13/19 04:13 Dose: 1,000 mg Admin: 02/12/19 17:35 Dose: 1,000 mg Admin: 02/12/19 11:21 Dose: 1,000 mg Al Hydroxide/Mg Hydroxide (Mag-Al Plus) 30 ml PO Q4H PRN PRN Reason: Indigestion Allopurinol (Zyloprim) 100 mg PO QPM [facility] Last Admin: 02/12/19 17:35 Dose: 100 mg Admin: 02/11/19 18:02 Dose: 100 mg Admin: 02/10/19 17:51 Dose: 100 mg Amlodipine Besylate (Norvasc) 10 mg PO QPM [facility] Last Admin: 02/12/19 17:34 Dose: 10 mg Admin: 02/11/19 18:05 Dose: 10 mg Admin: 02/10/19 17:50 Dose: 10 mg Aspirin (Ecotrin) 325 mg PO BID [facility] Last Admin: 02/12/19 20:46 Dose: 325 mg Admin: 02/12/19 08:36 Dose: 325 mg Admin: 02/11/19 20:33 Dose: 325 mg Admin: 02/11/19 10:04 Dose: 325 mg Bisacodyl (Dulcolax) 10 mg RECTAL DAILY PRN PRN Reason: Constipation Celecoxib (Celebrex) 200 mg PO BID [facility] Last Admin: 02/12/19 20:45 Dose: 200 mg Admin: 02/12/19 08:31 Dose: 200 mg Admin: 02/11/19 20:33 Dose: 200 mg Admin: 02/11/19 10:03 Dose: 200 mg Citalopram Hydrobromide (Celexa) 20 mg PO QPM [facility] Last Admin: 02/12/19 17:34 Dose: 20 mg Admin: 02/11/19 18:04 Dose: 20 mg Admin: 02/10/19 17:50 Dose: 20 mg Diphenhydramine HCl (Benadryl) 25 - 50 mg PO Q6H PRN PRN Reason: Itching Docusate Sodium (Colace) 100 mg PO BID PRN PRN Reason: Constipation Famotidine (Pepcid) 40 mg IVPUSH ONARRIVE [facility] Last Admin: 02/10/19 09:09 Dose: 40 mg Famotidine (Pepcid) 40 mg PO DAILY [facility] Last Admin: 02/12/19 08:31 Dose: 40 mg Admin: 02/11/19 10:05 Dose: 40 mg Fluticasone Propionate (Flonase) 0 gm NASBOTH DAILY PRN PRN Reason: Allergies Furosemide (Lasix) 20 mg PO DAILY PRN PRN Reason: swollen legs Gabapentin (Neurontin) 100 mg PO QPM [facility] Last Admin: 02/12/19 17:35 Dose: 100 mg Admin: 02/11/19 18:03 Dose: 100 mg Admin: 02/10/19 17:50 Dose: 100 mg Hydromorphone HCl (Dilaudid) 0.5 - 1 mg IVPUSH Q3H PRN PRN Reason: Pain Last Admin: 02/10/19 14:33 Dose: 1 mg Cefazolin Sodium/Dextrose 2 gm (/ Premix) 50 mls @ 100 mls/hr IV ONCALL [facility] Last Admin: 02/10/19 18:20 Dose: 100 mls/hr Lactated Ringer's (Ringers, Lactated) 1,000 mls @ 100 mls/hr IV ASDIRECTED [facility] Last Admin: 02/10/19 15:45 Dose: 100 mls/hr Infusion: 02/10/19 15:45 Dose: 100 mls/hr Admin: 02/10/19 08:52 Dose: 100 mls/hr Ondansetron HCl (Zofran) 4 mg IVPUSH Q6H PRN PRN Reason: Nausea/Vomiting Last Admin: 02/11/19 02:30 Dose: 4 mg Admin: 02/10/19 17:44 Dose: 4 mg Oxycodone/Acetaminophen (Percocet 325-5 Mg) 1 - 2 tab PO Q4H PRN PRN Reason: Pain Last Admin: 02/12/19 04:15 Dose: 1 tab Admin: 02/11/19 15:35 Dose: 1 tab Polyethylene Glycol (Miralax) 17 gm PO DAILY [facility] Last Admin: 02/12/19 08:37 Dose: 17 gm Admin: 02/11/19 10:06 Dose: 17 gm Prednisolone Acetate (Pred Forte 1% Ophth Susp) 1 ml EYEBOTH BID [facility] Last Admin: 02/12/19 20:51 Dose: Not Given Admin: 02/12/19 08:43 Dose: Not Given Admin: 02/11/19 20:34 Dose: Not Given Admin: 02/11/19 10:09 Dose: Not Given Admin: 02/10/19 19:45 Dose: Not Given Prednisone (Prednisone) 2.5 mg PO DAILY [facility] Last Admin: 02/12/19 08:32 Dose: 2.5 mg Admin: 02/11/19 10:04 Dose: 2.5 mg Scopolamine (Transderm-Scop) 1.5 mg TRDERM ONARRIVE [facility] Last Admin: 02/10/19 09:09 Dose: 1.5 mg Sodium Chloride (Saline Flush) 10 ml FLUSH ASDIRECTED PRN PRN Reason: Keep Vein Open Sodium Chloride (Saline Flush) 2.5 ml FLUSH ASDIRECTED PRN PRN Reason: Keep Vein Open - Assessment Assessment (Free Text/Narrative):: POD#3 L TKA acute posthemorrhagic anemia - Plan Plan (Free Text/Narrative):: oxygen demand challenge today, anticipate she will drop <88% on room air with increased physical demand and will require supplemental O2 via nasal cannula at SNF discharge instructions d/w patient transfer to SNF today d/ch summary #[id number] cc'benjy Mahmood
[2019-02-13] MEDS: Celecoxib 100 MG Cap PO SCH (09:27)
[2019-02-13] MEDS: Aspirin 325 MG Tab.EC PO SCH (09:27)
[2019-02-13] MEDS: predniSONE 5 MG Tab PO SCH (09:28)
[2019-02-13] MEDS: Famotidine 20 MG Tab PO SCH (09:28)
[2019-02-13] MEDS: prednisoLONE Acetate 1% Ophth Susp 5 ML Bottle EYEBOTH SCH (09:29)
[2019-02-13] MEDS: Polyethylene Glycol 3350 Powder 17 GM Packet PO SCH (09:29)
--- NOTE | 2019-02-14 08:33 | DISCH ---
DATE OF DISCHARGE: 02/13/2019 PRIMARY CARE PHYSICIAN: Marley PCP ADMITTING DIAGNOSIS: Degenerative joint disease, left knee, tricompartmental. OTHER MEDICAL DIAGNOSES: 1. Polymyalgia rheumatica. 2. Chronic generalized pain syndrome. 3. Chronic fatigue syndrome. 4. Anxiety/depression. 5. Renal calculi. 6. Hypertension. 7. Gout. DISCHARGE DIAGNOSES: 1. Degenerative joint disease, left knee, tricompartmental. 2. Polymyalgia rheumatica. 3. Chronic generalized pain syndrome. 4. Chronic fatigue syndrome. 5. Anxiety/depression. 6. Renal calculi. 7. Hypertension. 8. Gout. 9. Acute posthemorrhagic anemia. BRIEF HISTORY: Elizabeth is a 73-year-old female who has had progressive complaints of left knee pain. She has tried and failed conservative treatment. At that time, surgical treatment was recommended. On February 10, 2019, the patient underwent a left total knee arthroplasty done by Dr. Izzy Donovan. It was done under spinal anesthesia with sedation. Estimated blood loss was 50 mL. Tourniquet time was 53 minute. There were no known complications. Upon completion of the procedure, the patient was transferred to the PACU and subsequently to Med/Surg for postoperative care. HOSPITAL COURSE: Postoperatively, the patient did well. She received two doses of antibiotics postoperatively for a total 24 hours of antibiotic coverage. Physical Therapy followed her through her hospital stay. The hospitalist service followed her through her hospital stay for management of her medical comorbidities. Her pain was controlled with a combination of oral and IV pain medications. She has been ambulating with a wheeled walker. Her vital signs have been stable, at rest, her oxygen saturation has dropped to 88%, and she may require supplemental oxygen to maintain oxygen saturation greater than 92%, especially during physical therapy. Her hemoglobin on the morning of February 13 was 10.8. Her pain is controlled with oral pain medications only at this time. She feels that she is ready for transfer to a detention facility at this time. DISCHARGE MEDICATIONS: 1. Percocet 5/325. 2. Celebrex 200 mg. 3. Colace 100 mg. 4. MiraLAX. 5. Aspirin 325 mg. Resuming home medications: 1. Allopurinol 100 mg p.o. daily. 2. Amlodipine 10 mg p.o. daily. 3. Citalopram 20 mg p.o. daily. 4. Flonase intranasally as needed for congestion. 5. Gabapentin 300 mg p.o. at bedtime. 6. Prednisone 2.5 mg p.o. daily. 7. Furosemide 10 to 20 mg p.o. daily p.r.n. peripheral edema. DISCHARGE INSTRUCTIONS: Please refer back to Dr. Donovan's postoperative patient instructions for total knee arthroplasty and the patient's EHR. Should she have questions or concerns prior to followup, she has been advised to contact the clinic. DANELLE YANG /[id number]
== END 2019-02-13 11:16 | disposition home or self-care (01) | DRG 470 ==
LOC: MW.MS 07:29 → EDSTATUS 10:00
PROVIDERS: ADMIT Orthopaedic Surgery; ATTEND Orthopaedic Surgery
PROC: 0SRD0J9 Replacement of Left Knee Joint with Synthetic Substitute, Cemented, Open Approach (ICD-10-PCS; principal; 2019-02-10)
DX: M17.12 Unilateral primary osteoarthritis, left knee (principal); D62 Acute posthemorrhagic anemia; F41.9 Anxiety disorder, unspecified; F32.9 Major depressive disorder, single episode, unspecified; I10 Essential (primary) hypertension; M54.9 Dorsalgia, unspecified; E66.9 Obesity, unspecified; M10.9 Gout, unspecified; M35.3 Polymyalgia rheumatica; R53.82 Chronic fatigue, unspecified; G89.29 Other chronic pain; Z88.1 Allergy status to other antibiotic agents; Z88.2 Allergy status to sulfonamides; Z88.8 Allergy status to other drugs, medicaments and biological substances; Z88.5 Allergy status to narcotic agent; Z79.52 Long term (current) use of systemic steroids; Z87.442 Personal history of urinary calculi; Z98.49 Cataract extraction status, unspecified eye; Z94.7 Corneal transplant status; Z98.51 Tubal ligation status; Z87.891 Personal history of nicotine dependence; Z85.3 Personal history of malignant neoplasm of breast
CPT/HCPCS: 36415; 73560-26-LT; 73560-LT; 80048; 83735; 85014; 85018; 85025; 86850; 86900; 86901; 97110-GP; 97161-GP; 97530-GP; A4217; A9270-GY; C1713; C1776; J0131; J0171; J0690; J0735; J1170; J1885; J2250; J2405; J2704; J2795; J3010; J3490; J7050; J7120; J7512

== ENCOUNTER 2020-06-07 14:55 | Emergency (ER) | payer MEDICARE, OTHER ==
--- NOTE | 2020-06-07 15:22 | EDM.PDOC ---
ED HPI GENERAL MEDICAL PROBLEM - General Chief Complaint: General Stated Complaint: FALL Time Seen by Provider: 06/07/20 14:58 Source of Information: Reports: Patient History Limitations: Reports: No Limitations - History of Present Illness INITIAL COMMENTS - FREE TEXT/NARRATIVE: 74-year-old female past medical history arthritis, rheumatoid arthritis, fibromyalgia presents status post fall. Patient is not on any blood thinning medications. She notes that she stepped out of her front door and did not realize that there was a UPS box on the ground. She fell forward landing on her face. She also notes falling on bilateral knees, and right hand. She notes that she was unable to get up on her own and was stuck in the cold for a while. She notes that she feels much warmer now. She notes pain in her lower back, bilateral knees, face. Knees Pain Score (Numeric/FACES): 6 - Related Data Allergies Allergy/AdvReac Type Severity Reaction Status Date / Time amoxicillin [From Augmentin] Allergy Nausea and Verified 06/07/20 15:33 Vomiting clavulanic acid Allergy Nausea and Verified 06/07/20 15:33 [From Augmentin] Vomiting clindamycin Allergy Nausea and Verified 06/07/20 15:33 Vomiting codeine Allergy Nausea and Verified 06/07/20 15:33 Vomiting Iodinated Contrast Media Allergy Hives Verified 06/07/20 15:33 [Iodinated Contrast- Oral and IV Dye] iodine Allergy Hives Verified 06/07/20 15:33 levofloxacin Allergy Nausea and Verified 06/07/20 15:33 Vomiting morphine Allergy Nausea and Verified 06/07/20 15:33 Vomiting olmesartan Allergy Nausea and Verified 06/07/20 15:33 Vomiting oxycodone Allergy Nausea and Verified 06/07/20 15:33 Vomiting Sulfa (Sulfonamide Allergy Nausea and Verified 06/07/20 15:33 Antibiotics) Vomiting telmisartan Allergy Nausea and Verified 06/07/20 15:33 Vomiting theophylline [From Theolair] Allergy Cannot Verified 06/07/20 15:33 Remember Home Meds: Home Meds allopurinoL [Zyloprim] 100 mg PO BEDTIME 08/09/18 [History] amLODIPine [Norvasc] 10 mg PO QPM 08/09/18 [History] Citalopram [Citalopram HBr] 20 mg PO QPM 08/28/18 [History] Gabapentin [Neurontin] 100 mg PO QPM 08/28/18 [History] Furosemide 20 mg PO DAILY PRN 02/05/19 [History] predniSONE 2.5 mg PO BID 02/10/19 [History] Celecoxib [CeleBREX] 200 mg PO DAILY #30 cap 02/13/19 [Rx] Trimethoprim 100 mg PO BEDTIME 06/07/20 [History] Past Medical History HEENT History: Reports: Cataract, Other (See Below) Other HEENT History: hx of fx nose, hx of Fuchs Corneal Dystrophy Cardiovascular History: Reports: Hypertension Respiratory History: Reports: None Gastrointestinal History: Reports: Diverticulosis, Hiatal Hernia Genitourinary History: Reports: Renal Calculus Other Genitourinary History: passed stones on her own [employer] History: Reports: Musculoskeletal History: Reports: Back Pain, Chronic, Gout, Neck Pain, Chronic, RA Neurological History: Reports: Concussion Psychiatric History: Reports: Anxiety, Depression Endocrine/Metabolic History: Reports: Obesity/BMI 30+ Hematologic History: Reports: None Immunologic History: Reports: Immunosuppression Oncologic (Cancer) History: Reports: Basal Cell Carcinoma, Breast Dermatologic History: Reports: Psoriasis - Infectious Disease History Infectious Disease History: Reports: Chicken Pox - Past Surgical History Head Surgeries/Procedures: Reports: None HEENT Surgical History: Reports: Cataract Surgery, Naso-Sinus Surgery, Other (See Below) Cardiovascular Surgical History: Reports: None Respiratory Surgical History: Reports: None GI Surgical History: Reports: Colon, Colonoscopy, Other (See Below) Other GI Surgeries/Procedures: hx of Colon Resection for diverticulosis, hx of "cyst" removed from liver Female Surgical History: Reports: Mastectomy, Tubal Ligation Endocrine Surgical History: Reports: None Neurological Surgical History: Reports: None Musculoskeletal Surgical History: Reports: Arthroscopic Knee Dermatological Surgical History: Reports: None, Skin Biopsy Social & Family History - Family History Family Medical History: Noncontributory - Tobacco Use Used Tobacco, but Quit: Yes Month/Year Tobacco Last Used: 07/2001 - Caffeine Use Caffeine Use: Reports: Coffee - Recreational Drug Use Recreational Drug Use: No ED ROS GENERAL - Review of Systems Review Of Systems: Comprehensive ROS is negative, except as noted in HPI. ED EXAM, GENERAL - Physical Exam Exam: See Below Exam Limited By: No Limitations General Appearance: Alert, WD/WN, No Apparent Distress Eye Exam: Bilateral Eye: EOMI, PERRL Ears: Normal External Exam Nose: Other (grossly swollen, TTP, ecchymotic) Throat/Mouth: Normal Oropharynx, Normal Voice, No Airway Compromise Head: Normocephalic Neck: Normal Inspection, Non-Tender Respiratory/Chest: No Respiratory Distress, Lungs Clear, Normal Breath Sounds, No Accessory Muscle Use Cardiovascular: Normal Peripheral Pulses, Regular Rate, Rhythm GI/Abdominal: Soft, Non-Tender Extremities: Normal Inspection, Non-Tender Neurological: Alert, Oriented Psychiatric: Normal Affect, Normal Mood Skin Exam: Warm, Dry, Intact, Normal Color Course - Vital Signs Last Recorded V/S: Last Vital Signs Temp 98.2 F 06/07/20 15:02 Pulse 71 06/07/20 17:55 Resp 18 06/07/20 17:55 BP 126/58 L 06/07/20 17:55 Pulse Ox 95 06/07/20 17:55 - Re-Assessments/Exams Free Text/Narrative Re-Assessment/Exam: 06/07/20 15:[address] imaging of head, max face, neck, lumbar spine. Will get chest x- ray and pelvis x-ray. Will get x-ray of right elbow, right wrist. We will get bilateral knee x-rays. 06/07/20 17:16 All the patient's imaging is unremarkable, will walk test and reassess. 06/07/20 18:56 Patient can ambulate with walker. She is going to call her son to come pick her up. Return precautions were discussed at length. Departure - Departure Time of Disposition: 18:56 Disposition: Home, Self-Care 01 Condition: Good Clinical Impression: Fall Qualifiers: Encounter type: initial encounter Qualified Code(s): W19.XXXA - Unspecified fall, initial encounter - Discharge Information Instructions: Fall Prevention in the Home, Adult, [id number] Referrals: Gricelda Hernandez NP [Primary Care Provider] - Forms: ED Department Discharge Additional Instructions: The following information is given to patients seen in the emergency department who are being discharged to home. This information is to outline your options for follow-up care. We provide all patients seen in our emergency department with a follow-up referral. The need for follow-up, as well as the timing and circumstances, are variable depending upon the specifics of your emergency department visit. If you don't have a primary care physician on staff, we will provide you with a referral. We always advise you to contact your personal physician following an emergency department visit to inform them of the circumstance of the visit and for follow-up with them and/or the need for any referrals to a consulting specialist. The emergency department will also refer you to a specialist when appropriate. This referral assures that you have the opportunity for follow-up care with a specialist. All of these measure are taken in an effort to provide you with optimal care, which includes your follow-up. Under all circumstances we always encourage you to contact your private physician who remains a resource for coordinating your care. When calling for follow-up care, please make the office aware that this follow-up is from your recent emergency room visit. If for any reason you are refused follow-up, please contact the [facility] Emergency Department at and asked to speak to the emergency department charge nurse. Please follow up with your primary care physician. If you do not have a primary care physician, see below: [facility] [address] [place] [id number] [facility] [address] [place] [id number] Sepsis Event Note (ED) - Evaluation Sepsis Screening Result: No Definite Risk - Focused Exam Vital Signs: Vital Signs Temp Pulse Resp BP Pulse Ox 06/07/20 17:55 71 18 126/58 L 95 06/07/20 17:15 99 18 136/112 H 95 06/07/20 15:02 98.2 F 87 18 96/72 92 L
--- NOTE | 2020-06-07 16:12 | CT ---
Indication: Status post fall Technique: Volumetric multidetector CT images of the head were obtained without the administration of low osmolar intravenous contrast. Comparison: None available Findings: There is no intra-axial or extra-axial fluid collection. There is no mass effect or midline shift. There is age-related cortical atrophy with mild sulcal widening and ex vacuo dilatation of the lateral ventricles. There are chronic small vessel disease changes in the subcortical and periventricular white matter without lost sherwood-white differentiation. The orbits and their contents are grossly within normal limits. The bony calvarium is grossly intact. The paranasal sinuses are clear. The mastoid air cells are well aerated. Impression: 1. Age-related changes of the brain without acute intracranial abnormality. Please note that all CT scans at this facility use dose modulation, iterative reconstruction, and/or weight-based dosing when appropriate to reduce radiation dose to as low as reasonably achievable. Dictated by Phani Doll MD @ Jun 07 2020 4:10PM Signed by Dr. Phani Doll @ Jun 07 2020 4:12PM
--- NOTE | 2020-06-07 16:22 | CT ---
Indication: Status post fall Technique: Volumetric multidetector CT images of the cervical spine were obtained without the administration of IV contrast. Comparison: None available. Findings: The cervical vertebral body heights are grossly maintained with minimal endplate Schmorl`s defects and subchondral cystic changes. There is mild reversal of the normal cervical lordosis without evidence of significant spondylolisthesis. There is moderate multilevel degenerative disc disease with disc desiccation, height loss and disc protrusions at multiple levels. There is moderate to severe multilevel facet arthrosis. There is no evidence of displaced fracture or dislocation. There is no displaced fracture or dislocation. There is mild biapical pleural thickening. The paraspinous soft tissues are grossly within normal limits. Impression: Moderate degenerative changes of the cervical spine without acute osseous abnormality. Please note that all CT scans at this facility use dose modulation, iterative reconstruction, and/or weight-based dosing when appropriate to reduce radiation dose to as low as reasonably achievable. Dictated by Phani Doll MD @ Jun 07 2020 4:12PM Signed by Dr. Phani Doll @ Jun 07 2020 4:20PM
--- NOTE | 2020-06-07 16:25 | CT ---
Indication: Status post fall Technique: Volumetric multidetector CT images of the facial bones were obtained without the administration of IV contrast. Comparison: None available. Findings: The partially visualized brain is normal in attenuation without evidence of midline shift or fluid collection. The paranasal sinuses are clear without evidence of air-fluid level. There is right periorbital, preseptal soft tissue swelling without evidence of any postseptal hematoma. The zygomatic arches are grossly intact. The bilateral maxillae are intact. The pterygoid plates are grossly intact. There is mild irregularity of the bilateral nasal bones with nasal soft tissue swelling likely representing minimally displaced nasal bone fractures. The mandible is grossly well located. The partially visualized cervical spine is grossly intact without displaced fracture. Impression: Mild irregularity of the nasal bones with nasal soft tissue and periorbital soft tissue swelling likely representing injury. No other facial osseous injury is appreciated. Please note that all CT scans at this facility use dose modulation, iterative reconstruction, and/or weight-based dosing when appropriate to reduce radiation dose to as low as reasonably achievable. Dictated by Phani Doll MD @ Jun 07 2020 4:12PM Signed by Dr. Phani Doll @ Jun 07 2020 4:23PM
--- NOTE | 2020-06-07 16:31 | CT ---
Indication: Status post fall Technique: Volumetric multidetector CT images of the lumbar spine were obtained without the administration of IV contrast. Comparison: None available. Findings: The lumbar vertebral body heights are maintained with minimal endplate Schmorl`s defects. There is mild straightening of the normal lordosis with trace anterolisthesis of L4 on L5. There is mild to moderate degenerative disc disease with disc height loss and marginal osteophyte formation. There is likely mild spinal canal narrowing at the L4-L5 and L5-S1 levels. There is no displaced fracture or dislocation. There is moderate to severe multilevel facet arthrosis worst at the L3-L4, L4-L5 and L5-S1 levels. Impression: [id number] degenerative changes of the lumbar spine without acute osseous abnormality. Please note that all CT scans at this facility use dose modulation, iterative reconstruction, and/or weight-based dosing when appropriate to reduce radiation dose to as low as reasonably achievable. Dictated by Phani Doll MD @ Jun 07 2020 4:23PM Signed by Dr. Phani Doll @ Jun 07 2020 4:29PM
--- NOTE | 2020-06-07 17:02 | CR ---
Indication: Fall Comparison: Two-view chest June 02, 2010 Technique: Single AP view chest Findings: There is hyperinflation and chronic interstitial change. There is left basilar pleural effusion with adjacent compressive atelectasis versus infiltrates. The cardiac silhouette is mildly prominent with a tortuous thoracic aorta. The bony thorax is grossly intact. Impression: Left basilar pleural effusion with adjacent compressive atelectasis versus infiltrate. Dictated by Phani Doll MD @ Jun 07 2020 4:59PM Signed by Dr. Phani Doll @ Jun 07 2020 5:00PM
--- NOTE | 2020-06-07 17:04 | CR ---
Indication: Elderly, fall Comparison: None available. Technique: AP amd lateral views right were obtained Findings: There is no displaced fracture or dislocation. There is mild degenerative change of the radiocarpal joint with loss of joint space and marginal osteophyte formation. The soft tissues are unremarkable. Impression: Mild degenerative changes of the radiocarpal joint without acute osseous abnormality. Dictated by Phani Doll MD @ Jun 07 2020 5:01PM Signed by Dr. Phani Doll @ Jun 07 2020 5:02PM
--- NOTE | 2020-06-07 17:04 | CR ---
Indication: Elderly fall Comparison: None available. Technique: AP amd lateral views right elbow were obtained Findings: There is no displaced fracture or dislocation. There is mild degenerative change of the ulnotrochlear joint. There is no definite joint effusion identified. Impression: Mild degenerative change of the ulnotrochlear joint without acute osseous abnormality. Dictated by Phani Doll MD @ Jun 07 2020 5:02PM Signed by Dr. Phani Doll @ Jun 07 2020 5:03PM
--- NOTE | 2020-06-07 17:06 | CR ---
INDICATION: Elderly fall TECHNIQUE: Single-view pelvis COMPARISONS: None available. FINDINGS: Femoral heads are well-seated in the acetabula. There is no displaced fracture, dislocation or acute osseous abnormality. There is mild to moderate axial loss of joint space with marginal osteophyte formation of the left greater than right hips. The soft tissues are unremarkable. IMPRESSION: [id number] degenerative changes of the left greater than right hips without acute osseous abnormality. Dictated by Phani Doll MD @ Jun 07 2020 5:03PM Signed by Dr. Phani Doll @ Jun 07 2020 5:05PM
--- NOTE | 2020-06-07 17:08 | CR ---
Indication: Elderly fall Comparison: None available. Technique: AP amd lateral views bilateral knees were obtained Findings: There is moderate to severe degenerative change of the right knee with medial compartment joint space loss and tibial spine spurring. There is a left total knee arthroplasty without evidence of hardware failure. There is no displaced fracture or dislocation. There is mild nonspecific superficial soft tissue prominence. Impression: Left total knee arthroplasty without evidence of hardware failure. Moderate to severe degenerative change of the right knee without acute osseous abnormality. Dictated by Phani Doll MD @ Jun 07 2020 5:05PM Signed by Dr. Phani Doll @ Jun 07 2020 5:07PM
== END 2020-06-07 19:15 | disposition home or self-care (01) ==
LOC: MW.ED 14:55
DX: M54.5 Low back pain (principal); M25.562 Pain in left knee; M25.561 Pain in right knee; F41.9 Anxiety disorder, unspecified; F32.9 Major depressive disorder, single episode, unspecified; I10 Essential (primary) hypertension; Z79.899 Other long term (current) drug therapy; Z88.2 Allergy status to sulfonamides; Z88.5 Allergy status to narcotic agent; Z88.8 Allergy status to other drugs, medicaments and biological substances; Z88.1 Allergy status to other antibiotic agents; Z88.0 Allergy status to penicillin; Z91.041 Radiographic dye allergy status; W18.30XA Fall on same level, unspecified, initial encounter
CPT/HCPCS: 70450; 70450-26; 70486; 70486-26; 71045; 71045-26; 72125; 72125-26; 72131; 72131-26; 72170; 72170-26; 73070-26-RT; 73070-RT; 73100-26-RT; 73100-RT; 735602650; 73560-50; 99284-25; 99285

== ENCOUNTER 2020-07-23 13:29 | Emergency (ER) | payer MEDICARE, OTHER ==
[2020-07-23] MEDS ORDERED: Sodium Chloride 0.9% 10 ML Syringe FLUSH PRN (13:33)
[2020-07-23] MEDS ORDERED: Sodium Chloride 0.9% 2.5 ML Syringe FLUSH PRN (13:33)
[2020-07-23] MEDS ORDERED: Furosemide 40 MG/4 ML VIAL IVPUSH ONE (14:04)
--- NOTE | 2020-07-23 14:07 | EDM.PDOC ---
ED HPI GENERAL MEDICAL PROBLEM - General Chief Complaint: Respiratory Problem Stated Complaint: SOB WEAK Time Seen by Provider: 07/23/20 13:35 Source of Information: Reports: Patient History Limitations: Reports: No Limitations - History of Present Illness INITIAL COMMENTS - FREE TEXT/NARRATIVE: Patient is a 75-year-old female who presents today for shortness of breath. Patient that has been feeling short of breath for the past few days but today became worse. Pain states at rest he feels fine but when she ambulates the shortness breath is worse she also states she cannot lay flat due to shortness of breath as well. Patient also reports a dry cough. Patient denies any fever chills chest pain abdominal pain or nausea vomiting. Patient also reported increased swelling of her lower extremities. - Related Data Allergies Allergy/AdvReac Type Severity Reaction Status Date / Time amoxicillin [From Augmentin] Allergy Nausea and Verified 07/23/20 13:57 Vomiting clavulanic acid Allergy Nausea and Verified 07/23/20 13:57 [From Augmentin] Vomiting clindamycin Allergy Nausea and Verified 07/23/20 13:57 Vomiting codeine Allergy Nausea and Verified 07/23/20 13:57 Vomiting Iodinated Contrast Media Allergy Hives Verified 07/23/20 13:57 [Iodinated Contrast- Oral and IV Dye] iodine Allergy Hives Verified 07/23/20 13:57 levofloxacin Allergy Nausea and Verified 07/23/20 13:57 Vomiting morphine Allergy Nausea and Verified 07/23/20 13:57 Vomiting olmesartan Allergy Nausea and Verified 07/23/20 13:57 Vomiting oxycodone Allergy Nausea and Verified 07/23/20 13:57 Vomiting Sulfa (Sulfonamide Allergy Nausea and Verified 07/23/20 13:57 Antibiotics) Vomiting telmisartan Allergy Nausea and Verified 07/23/20 13:57 Vomiting theophylline [From Theolair] Allergy Cannot Verified 07/23/20 13:57 Remember Home Meds: Home Meds allopurinoL [Zyloprim] 100 mg PO BEDTIME 08/09/18 [History] amLODIPine [Norvasc] 10 mg PO QPM 08/09/18 [History] Citalopram [Citalopram HBr] 20 mg PO QPM 08/28/18 [History] Gabapentin [Neurontin] 100 mg PO QPM 08/28/18 [History] Furosemide 20 mg PO DAILY PRN 02/05/19 [History] predniSONE 2.5 mg PO BID 02/10/19 [History] Celecoxib [CeleBREX] 200 mg PO DAILY #30 cap 02/13/19 [Rx] Trimethoprim 100 mg PO BEDTIME 06/07/20 [History] Past Medical History HEENT History: Reports: Cataract, Other (See Below) Other HEENT History: hx of fx nose, hx of Fuchs Corneal Dystrophy Cardiovascular History: Reports: Hypertension Respiratory History: Reports: None Gastrointestinal History: Reports: Diverticulosis, Hiatal Hernia Genitourinary History: Reports: Renal Calculus Other Genitourinary History: passed stones on her own MEDICAL TRANSCRIPTION RADIOLOGY History: Reports: Musculoskeletal History: Reports: Back Pain, Chronic, Gout, Neck Pain, Chronic, RA Neurological History: Reports: Concussion Psychiatric History: Reports: Anxiety, Depression Endocrine/Metabolic History: Reports: Obesity/BMI 30+ Hematologic History: Reports: None Immunologic History: Reports: Immunosuppression Oncologic (Cancer) History: Reports: Basal Cell Carcinoma, Breast Dermatologic History: Reports: Psoriasis - Infectious Disease History Infectious Disease History: Reports: Chicken Pox - Past Surgical History Head Surgeries/Procedures: Reports: None HEENT Surgical History: Reports: Cataract Surgery, Naso-Sinus Surgery, Other (See Below) Other HEENT Surgeries/Procedures: hx of bilateral corneal transplants Cardiovascular Surgical History: Reports: None Respiratory Surgical History: Reports: None GI Surgical History: Reports: Colon, Colonoscopy, Other (See Below) Other GI Surgeries/Procedures: hx of Colon Resection for diverticulosis, hx of "cyst" removed from liver Female Surgical History: Reports: Mastectomy, Tubal Ligation Endocrine Surgical History: Reports: None Neurological Surgical History: Reports: None Musculoskeletal Surgical History: Reports: Arthroscopic Knee Oncologic Surgical History: Reports: Mastectomy Dermatological Surgical History: Reports: None, Skin Biopsy Social & Family History - Family History Family Medical History: No Pertinent Family History - Tobacco Use Used Tobacco, but Quit: Yes Month/Year Tobacco Last Used: 2001 - Caffeine Use Caffeine Use: Reports: None - Recreational Drug Use Recreational Drug Use: No ED ROS GENERAL - Review of Systems Review Of Systems: See Below Constitutional: Reports: No Symptoms HEENT: Reports: No Symptoms Respiratory: Reports: Shortness of Breath, Cough Cardiovascular: Reports: Edema Endocrine: Reports: No Symptoms GI/Abdominal: Reports: No Symptoms : Reports: No Symptoms Musculoskeletal: Reports: No Symptoms Skin: Reports: No Symptoms Neurological: Reports: No Symptoms Psychiatric: Reports: No Symptoms Hematologic/Lymphatic: Reports: No Symptoms Immunologic: Reports: No Symptoms ED EXAM, GENERAL - Physical Exam Exam: See Below Exam Limited By: No Limitations General Appearance: Alert, WD/WN Respiratory/Chest: No Respiratory Distress, Crackles Cardiovascular: Normal Peripheral Pulses GI/Abdominal: Normal Bowel Sounds, Soft, Non-Tender Extremities: Normal Inspection, Normal Range of Motion Neurological: Alert, Oriented, Normal Cognition #1 Interpretation EKG Date: 07/23/20 Time: 13:40 Rhythm: Other (sinus tachy) Rate (Beats/Min): 104 ST-T: Normal Course - Vital Signs Last Recorded V/S: Last Vital Signs Temp 98.3 F 07/23/20 13:35 Pulse 99 07/23/20 14:47 Resp 24 H 07/23/20 14:47 BP 143/75 H 07/23/20 14:47 Pulse Ox 95 07/23/20 14:54 - Orders/Labs/Meds Orders: Active Orders 24 hr Category Date Time Status Cardiac Monitoring [RC] . DIRECTED Care 07/23/20 13:33 Active EKG Documentation Completion [RC] STAT Care 07/23/20 13:33 Active Chest PE [Ang Chest] [CT] Stat Exams 07/23/20 14:49 Ordered B-TYPE NATRIURETIC PEPTIDE,BNP [CHEM] Stat Lab 07/23/20 13:41 Received PTT,PARTIAL THROMBOPLSTIN TIME [COAG] Stat Lab 07/23/20 13:41 Received TROPONIN I [CHEM] Stat Lab 07/23/20 16:30 Ordered Heparin Sodium/0.45% NaCl [Heparin 25,000 Units in 1/2 Med 07/23/20 15:15 Active NS 500 ML] 500 ml IV TITRATE Sodium Chloride 0.9% [Saline Flush] Med 07/23/20 13:33 Active 10 ml FLUSH ASDIRECTED PRN Sodium Chloride 0.9% [Saline Flush] Med 07/23/20 13:33 Active 2.5 ml FLUSH ASDIRECTED PRN Saline Lock Insert [OM.PC] Stat Oth 07/23/20 13:33 Ordered Medication Orders Heparin Sodium/Sodium Chloride (Heparin 25,000 Units In 1/2 Ns 500 Ml) 500 mls @ 23.079 mls/hr IV TITRATE RADHA; Protocol Sodium Chloride (Saline Flush) 10 ml FLUSH ASDIRECTED PRN PRN Reason: Keep Vein Open Last Admin: 07/23/20 13:55 Dose: 10 ml Documented by: CAROL Sodium Chloride (Saline Flush) 2.5 ml FLUSH ASDIRECTED PRN PRN Reason: Keep Vein Open Last Admin: 07/23/20 13:55 Dose: 2.5 ml Documented by: CAROL Labs: Laboratory Tests 07/23/20 07/23/20 07/23/20 Range/Units 13:41 13:41 14:52 WBC 10.59 (4.0-11.0) K/uL RBC 4.77 (4.30-5.90) M/uL Hgb 14.1 (12.0-16.0) g/dL Hct 45.1 (36.0-46.0) % MCV 94.5 (80.0-98.0) fL MCH 29.6 (27.0-32.0) pg MCHC 31.3 (31.0-37.0) g/dL RDW Std Deviation 50.3 (28.0-62.0) fl RDW Coeff of Mauri 15 (11.0-15.0) % Plt Count 213 (150-400) K/uL MPV 10.60 (7.40-12.00) fL Neut % (Auto) 70.5 (48.0-80.0) % Lymph % (Auto) 20.9 (16.0-40.0) % [place] % (Auto) 7.5 (0.0-15.0) % Eos % (Auto) 0.8 (0.0-7.0) % Baso % (Auto) 0.3 (0.0-1.5) % Neut # (Auto) 7.5 H (1.4-5.7) K/uL Lymph # (Auto) 2.2 (0.6-2.4) K/uL [place] # (Auto) 0.8 (0.0-0.8) K/uL Eos # (Auto) 0.1 (0.0-0.7) K/uL Baso # (Auto) 0.0 (0.0-0.1) K/uL Nucleated RBC % 0.0 /100WBC Nucleated RBCs # 0 K/uL Sodium 140 (136-145) mmol/L Potassium 3.4 L (3.5-5.1) mmol/L Chloride 100 (98-107) mmol/L Carbon Dioxide 26.9 (21.0-32.0) mmol/L BUN 29 H (7.0-18.0) mg/dL Creatinine 1.2 H (0.6-1.0) mg/dL Est Cr Clr Drug Dosing 34.44 mL/min Estimated GFR (MDRD) 43.7 ml/min Glucose 149 H (74-106) mg/dL Calcium 9.4 (8.5-10.1) mg/dL Total Bilirubin 0.7 (0.2-1.0) mg/dL AST 19 (15-37) IU/L ALT 19 (14-63) IU/L Alkaline Phosphatase 135 H (46-116) U/L Troponin I 0.364 H* (0.000-0.056) ng/mL Total Protein 7.6 (6.4-8.2) g/dL Albumin 3.5 (3.4-5.0) g/dL Globulin 4.1 H (2.6-4.0) g/dL Albumin/Globulin Ratio 0.9 (0.9-1.6) Influenza Type A RNA NEGATIVE (NEGATIVE) Influenza Type B RNA NEGATIVE (NEGATIVE) SARS-CoV-2 RNA (AARON) NEGATIVE (NEGATIVE) Meds: Medications Generic Name Dose Route Start Last Admin Trade Name Freq PRN Reason Stop Dose Admin Heparin Sodium/Sodium Chloride 500 mls @ 23.079 mls/hr 07/23/20 15:15 Heparin 25,000 Units In 1/2 Ns 500 Ml IV TITRATE RADHA Protocol 12 UNITS/KG/HR Sodium Chloride 10 ml 07/23/20 13:33 07/23/20 13:55 Saline Flush FLUSH 10 ml ASDIRECTED PRN Administration Keep Vein Open Sodium Chloride 2.5 ml 07/23/20 13:33 07/23/20 13:55 Saline Flush FLUSH 2.5 ml ASDIRECTED PRN Administration Keep Vein Open Discontinued Medications Generic Name Dose Route Start Last Admin Trade Name Freq PRN Reason Stop Dose Admin Aspirin 324 mg 07/23/20 14:30 07/23/20 14:48 Aspirin PO 07/23/20 14:31 324 mg ONETIME ONE Administration Furosemide 40 mg 07/23/20 14:04 07/23/20 14:18 Lasix IVPUSH 07/23/20 14:05 40 mg NOW ONE Administration - Re-Assessments/Exams Free Text/Narrative Re-Assessment/Exam: 07/23/20 15:11 Patient has a positive troponin but again denies chest pain. Patient amatory back from oxygen level dropped down to the high 80s. Back on 3 L nasal cannula ox level greater 95%. Will repeat tropes and start patient on a heparin drip. Patient CT still pending but has been accepted to [facility] for NSTEMI patient will be transferred. Departure - Departure Time of Disposition: 16:00 Disposition: DC/Tfer to Acute Hospital 02 Condition: Good Clinical Impression: NSTEMI (non-ST elevated myocardial infarction) - Discharge Information *PRESCRIPTION DRUG MONITORING PROGRAM REVIEWED*: Not Applicable *COPY OF PRESCRIPTION DRUG MONITORING REPORT IN PATIENT UNIQUE: Not Applicable Referrals: Gricelda Hernandez POLICY WRITER [Primary Care Provider] - Forms: ED Department Discharge Critical Care Note - Critical Care Note Total Time (mins): 40 Comments: Critical Care Procedure Note Authorized and Performed by: Dr. Moulton Total critical care time: Approximately Due to a high probability of clinically significant, life threatening deterioration, the patient required my highest level of preparedness to intervene emergently and I personally spent this critical care time directly and personally managing the patient. This critical care time included obtaining a history; examining the patient; pulse oximetry; ordering and review of studies; arranging urgent treatment with development of a management plan; evaluation of patient's response to treatment; frequent reassessment; and, discussions with other providers. This critical care time was performed to assess and manage the high probability of imminent, life-threatening deterioration that could result in multi-organ failure. It was exclusive of separately billable procedures and treating other patients and teaching time. Sepsis Event Note (ED) - Evaluation Sepsis Screening Result: No Definite Risk - Focused Exam Vital Signs: Vital Signs Temp Pulse Resp BP Pulse Ox 07/23/20 14:54 95 07/23/20 14:47 99 24 H 143/75 H 91 L 07/23/20 13:35 98.3 F 96 20 134/82 94 L - My Orders Last 24 Hours: My Active Orders 07/23/20 13:41 PTT,PARTIAL THROMBOPLSTIN TIME [COAG] Stat 07/23/20 14:49 Chest PE [Ang Chest] [CT] Stat 07/23/20 15:15 Heparin Sodium/0.45% NaCl [Heparin 25,000 Units in 1/2 NS 500 ML] 500 ml IV TITRATE 07/23/20 16:30 TROPONIN I [CHEM] Stat - Assessment/Plan Last 24 Hours: My Active Orders 07/23/20 13:41 PTT,PARTIAL THROMBOPLSTIN TIME [COAG] Stat 07/23/20 14:49 Chest PE [Ang Chest] [CT] Stat 07/23/20 15:15 Heparin Sodium/0.45% NaCl [Heparin 25,000 Units in 1/2 NS 500 ML] 500 ml IV TITRATE 07/23/20 16:30 TROPONIN I [CHEM] Stat Assessment:: A 75-year-old female presents today for shortness of breath and increased leg swelling. Likely related to CHF. Was given Lasix x-ray and reassess.
--- NOTE | 2020-07-23 14:21 | CR ---
HISTORY: Shortness of breath. TECHNIQUE: One view of the chest. COMPARISON: 06/07/2020. FINDINGS: The cardiac size and pulmonary vasculature are within normal limits. Mild atelectasis in the left lateral costophrenic angle. No lung consolidation or pulmonary edema. No pneumothorax or pleural effusion. There are degenerative changes of the spine. IMPRESSION: 1. Mild atelectasis in the left lateral costophrenic angle. 2. No lung consolidation or pulmonary edema. Dictated by Sam Valladares MD @ 07/23/2020 2:19:53 PM Dictated by: Sam Valladares MD @ 07/23/2020 14:19:56 (Electronically Signed)
[2020-07-23 14:25] LABS: CARBON DIOXIDE,CO2 26.9 mmol/L (21.0-32.0); POTASSIUM,K 3.4 mmol/L (3.5-5.1)
[2020-07-23] MEDS ORDERED: Aspirin 81 MG Tab.Chew PO ONE (14:30)
[2020-07-23] MEDS ORDERED: Heparin Sodium/0.45% NaCl 500 ML IV SCH (15:15)
[2020-07-23 15:37] LABS: CORONAVIRUS COVID-19 NAA NEGATIVE (NEGATIVE); INFLUENZA A NAA NEGATIVE (NEGATIVE); INFLUENZA B NAA NEGATIVE (NEGATIVE)
== END 2020-07-23 17:01 ==
LOC: MW.ED 13:29
DX: I21.4 Non-ST elevation (NSTEMI) myocardial infarction (principal); I10 Essential (primary) hypertension; M10.9 Gout, unspecified; F41.9 Anxiety disorder, unspecified; F32.9 Major depressive disorder, single episode, unspecified; E66.9 Obesity, unspecified; Z68.36 Body mass index [BMI] 36.0-36.9, adult; Z88.1 Allergy status to other antibiotic agents; Z88.5 Allergy status to narcotic agent; Z91.041 Radiographic dye allergy status; Z91.048 Other nonmedicinal substance allergy status; Z88.8 Allergy status to other drugs, medicaments and biological substances; Z88.2 Allergy status to sulfonamides; Z79.899 Other long term (current) drug therapy; Z87.891 Personal history of nicotine dependence; Z20.828 Contact with and (suspected) exposure to other viral communicable diseases
CPT/HCPCS: 0240U; 36415; 71045; 80053; 81001; 83880; 84484; 85025; 85730; 93005; 96365; 96375; 99285; A9270; J1644; J1940; 93010; 99291